=== PATIENT | female | born 1990 | race African-American/Black ===

== ENCOUNTER 2020-10-02 07:09 | Emergency (ER) | payer MEDICARE, MEDICAID, SELFPAY ==
[2020-10-02 07:15] VITALS: BP 140/72; PULSE 80; RESP 16; TEMP 36.6; O2SAT 99
--- NOTE | 2020-10-02 07:28 | ED.GENADULT ---
HPI - General Adult General Chief complaint: Unspecified Stated complaint: insomnia-havent slept in 1 day Time Seen by Provider: 10/02/20 07:28 History of Present Illness HPI narrative: 29 yo female w/ h/o paranoia presents to the ED for insomnia. She reports that she has not been able to sleep well for 1 week. She has not slept at all in the past 24 hours. She believes that this is 2/2 taking Haldol, which she takes PRN for paranoia. She was previously on trazodone. She tried getting in touch with her PCP, but she was not able. Related Data Allergies Allergy/AdvReac Type Severity Reaction Status Date / Time pineapple Allergy Unknown Verified 11/17/18 12:41 SHELLFISH Allergy Intermediate rash, resp Uncoded 11/17/18 12:41 difficulty Review of Systems Constitutional: Constitutional: Reports no additional constitutional complaints and Denies fever(s) Eyes: Eyes: Reports no additional eye complaints ENT: Reports system reviewed and no additional complaints, except as documented Cardiovascular: Cardiovascular: Denies chest pain Respiratory: Respiratory: Denies dyspnea Gastrointestinal: Gastrointestinal: Denies nausea Neurologic: Reports as per HPI Psychiatric: Psychiatric: Reports abnormal sleep pattern, Reports anhedonia, Reports paranoia, Denies homicidal ideation and Denies suicidal ideation [facility] Past Medical History Medical History (Updated 10/02/20 @ 07:38 by Martinez Yee MD) Paranoia Social History Social History (Updated 10/02/20 @ 07:32 by Martinez Yee MD) Smoking status: Never smoker Exam Const: General: cooperative, healthy appearing and no acute distress HENMT: Head: normal to inspection Eyes: General: appearance normal, both eyes and all related structures Pupils: Equal, round and reactive pupils present Neck: Neck: normal visual inspection Resp: Effort & Inspection: normal respiratory effort Skin: General skin exam: normal color Neuro: General: patient oriented x3, gait normal, moves all extremities, no focal motor deficits and CN's II-XI intact bilaterally Speech: normal speech Extrem: General: normal to inspection Medical Decision Making MDM Narrative Medical decision making narrative: I will provide a small amount of trazodone since she has taken this in the past. Discharge Plan Discharge Clinical Impression: Insomnia Patient Disposition: Home, Self-Care Condition: Stable Instructions: Insomnia (ED) Prescriptions: New trazodone 100 mg tablet 100 mg PO HS PRN (Reason: insomnia) Qty: 10 RF: 0 Follow-up/Referrals: Jamil Brown MD [Primary Care Provider] -
== END 2020-10-02 07:55 | disposition home or self-care (01) ==
LOC: ANHED 07:40
PROVIDERS: Emergency Provider Emergency Medicine; PCP Emergency Medicine
DX: G47.00 Insomnia, unspecified (principal)
CPT/HCPCS: 99283

== ENCOUNTER 2021-12-07 09:32 | Emergency (ER) | payer BC, SELFPAY ==
[2021-12-07 09:43] VITALS: BP 115/74; PULSE 98; RESP 20; TEMP 36.2; O2SAT 100
[2021-12-07 10:56] LABS: Basophils Percent Auto 0.2 % (0.2-1.2); Eosinophils Percent Auto 0.5 % (0-4.4); Hematocrit 37.4 % (37.0-47.0); Immature Granulocyte Absolute 0.01 K/mm3 (0.00-0.031); Immature Granulocyte Percent A 0.2 % (0-0.5); Immature Platelet Fraction Pct 3.5 % (0.9-11.2); Lymphocytes Absolute Auto 1.24 K/mm3 (0.9-3.2); Mean Corpuscular HGB Conc 32.1 g/dl (32-36); Mean Corpuscular Hemoglobin 27.1 pg (26-34); Mean Corpuscular Volume 84.4 fl (80-100); Monocytes Absolute Auto 0.5 K/mm3 (0.1-0.6); Neutrophils Absolute Auto 4.7 K/mm3 (1.3-6.7); Neutrophils Percent Auto 72.1 % (45.5-73.1); Platelet Count Result 302 k/mm3 (150-375); Red Blood Count 4.43 M/mm3 (4.2-5.4); Red Cell Distribution Width 14.5 % (11.5-14.5); White Blood Count 6.5 K/mm3 (4.5-10.0)
[2021-12-07 11:06] LABS: Alanine Aminotransferase 12 U/L (6-35); Alkaline Phosphatase 71 U/L (38-126); Anion Gap 7 mmol/L (8-16); Aspartate Amino Transferase 23 U/L (14-36); Bilirubin,Total 0.3 mg/dL (0.2-1.3); Blood Urea Nitrogen 6 mg/dL (7-17); Calcium 8.8 mg/dL (8.4-10.2); Carbon Dioxide 23 mmol/L (22-30); Chloride 106 mmol/L (98-107); Estimated CRCL calculation 126 ml/min; Estimated Glomerular Filt Rate > 60; Glucose 90 mg/dL (65-110); Lipase 104 U/L (23-300); Potassium 3.9 mmol/L (3.4-5.0); Sodium 136 mmol/L (137-145)
[2021-12-07 11:21] VITALS: BP 115/74; PULSE 90; RESP 16; TEMP 36.3; O2SAT 98
[2021-12-07] MEDS: SODIUM CHLORIDE 0.9% IV 1,000 ML 999 ML IV CONT (11:42)
[2021-12-07 12:00] VITALS: BP 120/70; PULSE 90; RESP 16; TEMP 36.3; O2SAT 100
[2021-12-07 12:26] LABS: Appearance Urine Slightly Cloudy (Clear); Bilirubin Urine 2+ (Negative); Blood Urine Negative (Negative); Color Urine Yellow (Yellow); Glucose Urine UA Negative (Negative); Ketones Urine 2+ mg/dL (Negative); Leukocyte Esterase Ur Negative LEU/UL (Negative); Nitrate Urine Negative (Negative); Protein Urine 1+ mg/dL (Negative); Specific Grav Ur >= 1.030 (1.001-1.035)
[2021-12-07 12:40] LABS: Bacteria Urine Trace /hpf; Mucus Urine Heavy /lpf; Squamous Epithelial Cell Urine Many /hpf (Few)
[2021-12-07 12:41] LABS: Add Urine Microscopic? YES
[2021-12-07 13:00] VITALS: BP 122/78; PULSE 86; RESP 16; O2SAT 100
[2021-12-07] MEDS: ONDANSETRON INJ 4 MG/2 ML VIAL IV PUSH (13:20)
--- NOTE | 2021-12-07 13:45 | ED.ABDPAIN ---
HPI - Abdominal Pain General Chief Complaint: Abdominal Pain Stated Complaint: 5 months preg, N/V and abd cramping Time Seen by Provider: 12/07/21 11:31 Source: patient Mode of arrival: ambulatory Limitations: no limitations History of Present Illness HPI narrative: 30-year-old 4 para 2 about 20 weeks of gestation here with complaints of nausea and upper abdominal pain for past few days. Patient states that she has not seen her OB doctor yet with this . She denies any fever or chills. Denies any vaginal bleeding or urinary symptoms. MD elicited complaint: abdominal pain Pertinent past history: none Onset (ago): day(s) (2) Location: epigastric Severity: moderate Quality: aching Radiation: none Migration to: no migration Exacerbating factors: nothing Relieving factors: nothing Associated symptoms: nausea and vomiting Related Data Patient : Yes Allergies Allergy/AdvReac Type Severity Reaction Status Date / Time pineapple Allergy Unknown Verified 11/25/20 12:00 shellfish derived Allergy Unknown Verified 11/25/20 12:00 SHELLFISH Allergy Intermediate rash, resp Uncoded 11/25/20 12:00 difficulty Review of Systems Review of Systems: All systems reviewed & are unremarkable except as noted in HPI and below Eyes: Eyes: Reports no additional eye complaints ENT: Reports system reviewed and no additional complaints, except as documented Cardiovascular: Cardiovascular: Reports no additional cardiovascular complaints Respiratory: Respiratory: Reports no additional respiratory complaints Gastrointestinal: Gastrointestinal: Reports as per HPI Musculoskeletal: Musculoskeletal: Reports no additional musculoskeletal complaints Integumentary/Breasts: Skin/Breast: Reports system reviewed and no additional complaints, except as docu Neurologic: Reports system reviewed and no additional complaints, except as documented Psychiatric: Psychiatric: Reports no additional psychiatric complaints [facility] Past Medical History Medical History Paranoia Family History Family History Mother Family history of mental disorder Depression Hypertension Family history of coronary artery disease Family history of heart disease in male family member before age 55 Family history of malignant neoplasm of breast in first degree relative Patient's mother is Social History Social History Smoking status: Never smoker Second hand tobacco smoke exposure: No Alcohol intake: never Exam Narrative: GENERAL: Well-appearing, well-nourished, and in no acute distress. HEAD: Normocephalic, atraumatic. EYES: PERRLA and EOMI.. NECK: Supple. CHEST: Clear to auscultation. No respiratory distress. HEART: Regular rate and rhythm. No murmur heard. Normal peripheral pulses. ABDOMEN: Gravid abdomen EXTREMITIES: Normal range of motion. No edema. SKIN: Warm, dry, no rash. NEURO: No focal deficits. Alert and oriented x3. PSYCH: Normal mood and affect. Course Course Emergency Course: Did give her a liter of normal saline and 4 of Zofran through her routine labs. She is feeling much better. Informed her about her lab work. Advised to try to drink fluids as tolerated take Zofran as needed, follow-up with her OB as scheduled Vital Signs Vital signs: Vital Signs Temperature 36.2 C L 12/07/21 09:43 Pulse Rate 98 12/07/21 09:43 Respiratory Rate 20 12/07/21 09:43 Blood Pressure 115/74 12/07/21 09:43 Pulse Oximetry 100 12/07/21 09:43 Temperature 36.3 C L 12/07/21 11:21 Pulse Rate 90 12/07/21 11:21 Respiratory Rate 16 12/07/21 11:21 Blood Pressure 115/74 12/07/21 11:21 Pulse Oximetry 98 12/07/21 11:21 MDM - Abdominal Pain Lab Data Result diagrams: 12/07/21 10:46 12/07/21 10:46 L
--- NOTE | 2021-12-07 14:00 | PC.NURSE ---
TO ED for FHT's Pt is 18 weeks gestation with vomiting over weekend. Pt states this is her 4th . FHT noted to be in 150; Pt states she is feeling contractions however points of epigastric area as area contractions. Abdomen palpates soft. Appplied toco and not contractions noted.
[2021-12-07 14:11] VITALS: BP 120/74; PULSE 84; RESP 16; O2SAT 100
--- NOTE | 2021-12-07 14:21 | PC.NURSE ---
Pt states she would like to see a female MD at [place]. Pt given [place] [facility] directory, Reviewed female MD's and midwives.
== END 2021-12-07 14:13 | disposition home or self-care (01) ==
PROVIDERS: Family Medicine; Emergency Provider Emergency Medicine; PCP Emergency Medicine
DX: O26.892 Other specified pregnancy related conditions, second trimester (principal); R10.13 Epigastric pain; O21.9 Vomiting of pregnancy, unspecified; Z3A.20 20 weeks gestation of pregnancy
CPT/HCPCS: 36415; 80053; 81001; 83690; 85025; 85055; 96361; 96374; 99284; J2405; J7030

== ENCOUNTER 2021-12-13 21:53 | Emergency (ER) | payer BC, SELFPAY ==
[2021-12-13] VITALS (10 sets, daily range): BP systolic 102–130; BP diastolic 71–85; PULSE 74–98; RESP 17–18; TEMP 36.1; O2SAT 100
[2021-12-13] MEDS: SODIUM CHLORIDE 0.9% IV 1,000 ML 999 ML IV CONT (22:23)
[2021-12-13] MEDS: diphenhydrAMINE HCl INJ 50 MG/ML VIAL 25 MG IV PUSH (22:23)
[2021-12-13] MEDS: METOCLOPRAMIDE HCL INJ 10 MG/2 ML VIAL IV PUSH (22:23)
[2021-12-14] VITALS (10 sets, daily range): BP systolic 91–114; BP diastolic 57–79; PULSE 82–95; RESP 17; O2SAT 100
[2021-12-14 00:10] LABS: Appearance Urine Clear (Clear); Bilirubin Urine 1+ (Negative); Blood Urine Trace-lysed (Negative); Color Urine Yellow (Yellow); Glucose Urine UA Negative (Negative); Ketones Urine 4+ mg/dL (Negative); Leukocyte Esterase Ur Trace LEU/UL (Negative); Nitrate Urine Negative (Negative); Protein Urine 1+ mg/dL (Negative); Specific Grav Ur >= 1.030 (1.001-1.035)
--- NOTE | 2021-12-14 00:16 | ED.NAVMDI ---
HPI - Nausea/Vomiting/Diarrhea General Chief complaint: Nausea/Vomiting/Diarrhea Stated complaint: hyperemesis Time Seen by Provider: 12/13/21 22:08 History of Present Illness HPI Narrative: 30-year-old female at 19 weeks presents with nausea and vomiting, unable to keep anything down, this is an ongoing problem through her entire . She also will have some epigastric discomfort when she eats. No fevers or chills, no flank pain, no dysuria. Related Data Allergies Allergy/AdvReac Type Severity Reaction Status Date / Time pineapple Allergy Unknown Other Verified 12/13/21 22:21 shellfish derived Allergy Unknown Swelling Verified 12/13/21 22:21 of Lip/Tongue/Throat SHELLFISH Allergy Intermediate rash, resp Uncoded 11/25/20 12:00 difficulty Review of Systems Review of Systems: CONST: No fever. HEENT: No sore throat C/V: No chest pain RESP: No cough GI: Reports abdominal pain, nausea, vomiting : No dysuria. M/S: No joint pain. SKIN: No rash. NEURO: [No focal numbness or weakness] PSYCH: [No depression] [facility] Past Medical History Medical History Paranoia Family History Family History Mother Family history of mental disorder Depression Hypertension Family history of coronary artery disease Family history of heart disease in male family member before age 55 Family history of malignant neoplasm of breast in first degree relative Patient's mother is Social History Social History Smoking status: Never smoker Second hand tobacco smoke exposure: No Alcohol intake: never Exam Narrative: EXAMINATION OF ORGAN SYSTEMS/BODY AREAS: Constitutional: Vital signs per nursing GENERAL:Appears uncomfortable in bed HEAD: Normal with no signs of head trauma. EYES: EOMI, conjunctiva normal ENT: Hearing grossly intact LUNGS: Nonlabored breathing. HEART: [Regular rate and rhythm] ABD: [Soft], [nontender to palpation], gravid EXT: Normal range of motion SKIN: [No rashes or lesions.] NEURO: [Alert and oriented x 3. No gross focal sensory or strength deficits.] PSYCH: Normal affect Course Course Emergency Course: 30-year-old female presenting with nausea and vomiting during , vital signs stable, exam shows uncomfortable patient but soft, nontender abdomen, I suspect hyperemesis versus gastritis versus unlikely any acute intra-abdominal etiology without tenderness, she is treated here with IV fluids and Reglan, on reevaluation she is feeling much better, urinalysis does not show any UTI, but does show ketones signifying dehydration, she is given additional fluids and will be discharged with famotidine and she already has Zofran. She should follow-up with her OB and come back if worse. Vital Signs Vital signs: Vital Signs Temperature 97.0 F L 12/13/21 21:55 Pulse Rate 98 12/13/21 21:55 Respiratory Rate 18 12/13/21 21:55 Blood Pressure 130/85 12/13/21 21:55 Pulse Oximetry 100 12/13/21 21:55 Temperature 97.0 F L 12/13/21 21:55 Pulse Rate 74 12/13/21 23:00 Respiratory Rate 17 12/13/21 23:00 Blood Pressure 102/71 12/13/21 22:45 Pulse Oximetry 100 12/13/21 23:00 MDM - Nausea/Vomiting/Diarrhea Lab Data Labs: Lab Results 12/13/21 Range/Units 23:56 Urine Color Yellow (Yellow) Urine Appearance Clear (Clear) Urine pH 6.0 (5.0-9.0) Ur Specific [place] >= 1.030 (1.001-1.035) Urine Protein 1+ H (Negative) mg/dL Urine Glucose (UA) Negative (Negative) mg/dL Urine Ketones 4+ H (Negative) mg/dL Ur Blood (Man) Trace-lysed (Negative) Urine Nitrate Negative (Negative) Urine Bilirubin 1+ H (Negative) Urine Urobilinogen 1.0 (<2.0) mg/dL Leukocyte Esterase Rfl Trace H (Negative) TIMOTHY/UL Urine RBC 6-10 H (0-2) /hpf Urine WBC 4-6 H /hpf U
[2021-12-14 00:17] LABS: Bacteria Urine Trace /hpf; Mucus Urine Heavy /lpf; Squamous Epithelial Cell Urine Many /hpf (Few)
[2021-12-14 00:18] LABS: Add Urine Microscopic? YES
[2021-12-14] MEDS: DEXTROSE 5%/LACTATED RINGERS 1,000 ML 999 ML IV CONT (00:39)
[2021-12-14] MEDS: FAMOTIDINE 20 MG/2 ML VIAL IV PUSH (00:39)
== END 2021-12-14 02:29 | disposition home or self-care (01) ==
PROVIDERS: Emergency Provider Emergency Medicine; PCP Emergency Medicine
DX: O21.0 Mild hyperemesis gravidarum (principal); Z3A.19 19 weeks gestation of pregnancy
CPT/HCPCS: 81001; 96361; 96374; 96375; 99284; J1200; J2765; J7030; J7121

== ENCOUNTER 2022-03-28 16:07 | Observation (INO) | payer OTHER, SELFPAY ==
[2022-03-28] VITALS (13 sets, daily range): BP systolic 105–128; BP diastolic 73–95; PULSE 75–105; BMI 25.3
[2022-03-28 16:57] LABS: Basophils Percent Auto 0.3 % (0.2-1.2); Hematocrit 32.8 % (37.0-47.0); Hemoglobin 10.7 g/dL (12.0-15.0); Immature Granulocyte Absolute 0.03 K/mm3 (0.00-0.031); Immature Granulocyte Percent A 0.3 % (0-0.5); Lymphocytes Absolute Auto 1.28 K/mm3 (0.9-3.2); Lymphocytes Percent Auto 13.2 % (18.3-44.2); Mean Corpuscular HGB Conc 32.6 g/dl (32-36); Mean Corpuscular Hemoglobin 26.5 pg (26-34); Mean Corpuscular Volume 81.2 fl (80-100); Mean Platelet Volume 10.4 fl (7.4-10.4); Monocytes Absolute Auto 0.8 K/mm3 (0.1-0.6); Monocytes Percent Auto 8.7 % (2.6-8.5); Neutrophils Absolute Auto 7.5 K/mm3 (1.3-6.7); Neutrophils Percent Auto 77.5 % (45.5-73.1); Platelet Count Result 289 k/mm3 (150-375); Red Blood Count 4.04 M/mm3 (4.2-5.4); Red Cell Distribution Width 13.1 % (11.5-14.5); White Blood Count 9.7 K/mm3 (4.5-10.0)
[2022-03-28] MEDS: DEXTROSE 5%/LACTATED RINGERS 1,000 ML 999 ML IV CONT (16:59)
[2022-03-28] MEDS: ONDANSETRON INJ 4 MG/2 ML VIAL IV PUSH (17:00)
[2022-03-28] MEDS: PANTOPRAZOLE SODIUM IV 40 MG VIAL IV PUSH (17:01)
--- NOTE | 2022-03-28 17:03 | OBADM ---
This patient, Odette A Kenia Cornejo, admitted to the OB room OB Post 116 for observation. Patient/family oriented to hospital policies and general routines including ID bracelet, bed and alarms, visiting hours, pain management, procedures, bathroom and other care routines, personal items, smoking policy, room service/diet, and visiting hours. Patient/Family are encouraged to report perceived risks to care and to ask questions if they do not understand what they are told or what they should do.
[2022-03-28 17:08] LABS: Alanine Aminotransferase 12 U/L (6-35); Albumin Level 3.5 g/dL (3.5-5.1); Alkaline Phosphatase 199 U/L (38-126); Anion Gap 9 mmol/L (8-16); Aspartate Amino Transferase 21 U/L (14-36); Bilirubin,Total 0.3 mg/dL (0.2-1.3); Blood Urea Nitrogen 7 mg/dL (7-17); Calcium 8.8 mg/dL (8.4-10.2); Carbon Dioxide 19 mmol/L (22-30); Chloride 104 mmol/L (98-107); Estimated Glomerular Filt Rate > 60; Glucose 92 mg/dL (65-110); Potassium 3.8 mmol/L (3.4-5.0); Sodium 132 mmol/L (137-145)
--- NOTE | 2022-03-28 18:56 | PM.IMHP ---
H&P: [facility] History of Present Illness Date/Time: 03/28/22 18:56 Chief Complaint: Nausea vomiting Narrative: this patient is a 31-year-old multiparous female at 33 week gestation who presents for nausea vomiting. She has had hyperemesis throughout her . She had some episodes of vomiting. She has improved since she has been observed here in the hospital. She denies any vaginal bleeding. She denies any loss of fluid or contractions. She denies any chest pain or shortness of breath. She denies any nausea, vomiting, fever, chills. Review of Systems Review of Systems: All systems reviewed & are unremarkable except as noted in HPI and below Constitutional: Constitutional: Denies chills, Denies fatigue, Denies fever(s) and Denies weakness Eyes: Eyes: Denies blurry vision, Denies change in vision, Denies loss of peripheral vision, Denies loss of vision, Denies other visual disturbances and Denies eye pain ENT: Denies vertigo, Denies dizziness, Denies hearing loss, Denies mouth pain, Denies nasal obstruction, Denies neck mass and Denies neck pain Cardiovascular: Cardiovascular: Denies chest pain, Denies diaphoresis, Denies syncope, Denies leg edema and Denies dyspnea Respiratory: Respiratory: Denies chest congestion, Denies cough, Denies hemoptysis, Denies dyspnea and Denies wheezing Gastrointestinal: Gastrointestinal: Denies abdominal pain, Denies constipation, Denies diarrhea, Denies nausea and Denies vomiting Genitourinary: Genitourinary: Denies hematuria, Denies change in libido, Denies nocturia, Denies genital lesions, Denies flank pain and Denies urinary urgency Musculoskeletal: Musculoskeletal: Denies abnormal gait, Denies back pain, Denies myalgias, Denies arthralgias, Denies joint swelling, Denies muscle weakness and Denies neck pain Integumentary/Breasts: Skin/Breast: Denies swelling, Denies breast pain, Denies breast mass, Denies dry skin, Denies nipple discharge, Denies unusual bruising and Denies jaundice Neurologic: Denies Neuro-related abnormal movements, Denies Abnormal speech present, Denies abnormal gait, Denies behavioral changes, Denies confusion, Denies vertigo, Denies dizziness, Denies syncope, Denies loss of vision, Denies memory loss, Denies convulsions and Denies weakness Psychiatric: Psychiatric: Denies abnormal sleep pattern, Denies behavioral changes, Denies change in libido, Denies confusion, Denies depression, Denies anhedonia and Denies memory loss Endocrine: Endocrine: Reports no additional endocrine complaints, Denies change in libido and Denies fatigue Hematologic/Lymphatic: Hematologic/Lymphatic: Reports no additional hematologic/lymphatic complaints Allergic/Immunologic: Allergic/Immunologic: Reports no additional allergic/immunologic complaints and Denies wheezing PMFSH Past Medical History Medical History Paranoia Family History Family History Mother Family history of mental disorder Depression Hypertension Family history of coronary artery disease Family history of heart disease in male family member before age 55 Family history of malignant neoplasm of breast in first degree relative Patient's mother is Social History Social History Smoking status: Never smoker Second hand tobacco smoke exposure: No Alcohol intake: never Meds Home Medications and Allergies Home Medications Medication Instructions Recorded Confirmed Type ondansetron 4 mg disintegrating 4 mg PO Q6-8H PRN nausea and 12/07/21 03/28/22 Rx tablet vomiting #14 tabs famotidine 20 mg tablet (Pepcid) 20 mg PO DAILY #30 tabs 12/14/21 03/28/22 Rx Allergies Allergy/AdvReac Type Severity Reaction Status Date / Time pineapple Allergy Unknown Other Verified 12/13/21 22:21 shellfish derived Allergy Unknown Swelling Verified 12/13/21
--- NOTE | 2022-03-28 19:05 | PC.NURSE ---
Dr. Carmichael at bedside. Dr. Carmichael discussed plan of care with patient. Patient states understanding of plan of care and denies questions.
== END 2022-03-28 20:13 | disposition home or self-care (01) ==
PROVIDERS: Obstetrics & Gynecology; Admitting Provider Obstetrics & Gynecology; PCP Emergency Medicine; Visit Provider Obstetrics & Gynecology
DX: O21.9 Vomiting of pregnancy, unspecified (principal); Z3A.33 33 weeks gestation of pregnancy; Z79.899 Other long term (current) drug therapy
CPT/HCPCS: 36415; 80053; 85025; 96374; 96375; C9113; G0378; G0379; J2405; J7121

== ENCOUNTER 2022-04-20 22:13 | Outpatient (CLI) | payer OTHER, SELFPAY ==
[2022-04-20 23:02] VITALS: BP 114/71; PULSE 78
[2022-04-20 23:12] LABS: Basophils Percent Auto 0.3 % (0.2-1.2); Eosinophils Percent Auto 0.4 % (0-4.4); Hematocrit 28.5 % (37.0-47.0); Hemoglobin 8.9 g/dL (12.0-15.0); Immature Granulocyte Absolute 0.03 K/mm3 (0.00-0.031); Immature Granulocyte Percent A 0.4 % (0-0.5); Lymphocytes Absolute Auto 1.68 K/mm3 (0.9-3.2); Lymphocytes Percent Auto 22.3 % (18.3-44.2); Mean Corpuscular HGB Conc 31.2 g/dl (32-36); Mean Corpuscular Hemoglobin 25.4 pg (26-34); Mean Corpuscular Volume 81.4 fl (80-100); Mean Platelet Volume 10.5 fl (7.4-10.4); Monocytes Absolute Auto 0.8 K/mm3 (0.1-0.6); Monocytes Percent Auto 10.4 % (2.6-8.5); Neutrophils Percent Auto 66.2 % (45.5-73.1); Platelet Count Result 246 k/mm3 (150-375); Red Cell Distribution Width 13.8 % (11.5-14.5); White Blood Count 7.5 K/mm3 (4.5-10.0)
[2022-04-20 23:15] VITALS: BP 109/63; PULSE 94
[2022-04-20 23:21] LABS: Alanine Aminotransferase 14 U/L (6-35); Albumin Level 3.1 g/dL (3.5-5.1); Alkaline Phosphatase 215 U/L (38-126); Anion Gap 11 mmol/L (8-16); Aspartate Amino Transferase 22 U/L (14-36); Bilirubin,Total 0.2 mg/dL (0.2-1.3); Blood Urea Nitrogen 6 mg/dL (7-17); Calcium 8.2 mg/dL (8.4-10.2); Carbon Dioxide 19 mmol/L (22-30); Chloride 104 mmol/L (98-107); Estimated Glomerular Filt Rate > 60; Glucose 105 mg/dL (65-110); Potassium 3.4 mmol/L (3.4-5.0); Sodium 134 mmol/L (137-145)
[2022-04-20 23:30] VITALS: BP 89/46; PULSE 69
[2022-04-20 23:45] VITALS: BP 98/65; PULSE 65
[2022-04-21] VITALS: BP 98/68; PULSE 69
[2022-04-21 00:25] LABS: Add Urine Microscopic? YES; Appearance Urine Slightly Cloudy (Clear); Bilirubin Urine 1+ (Negative); Blood Urine Negative (Negative); Color Urine Brown (Yellow); Glucose Urine UA Negative (Negative); Ketones Urine 1+ mg/dL (Negative); Leukocyte Esterase Ur 1+ LEU/UL (NEGATIVE); Nitrate Urine Negative (Negative); Protein Urine 1+ mg/dL (Negative); Specific Grav Ur >= 1.030 (1.001-1.035)
[2022-04-21 00:34] LABS: Bacteria Urine 1+ /hpf; Calcium Oxalate Crystals Urine Present /hpf; Mucus Urine Moderate /lpf; Squamous Epithelial Cell Urine Many /hpf (Few); WBC Urine 31-50 /hpf (0-3)
[2022-04-21 00:52] LABS: Creatinine Urine 300.2 mg/dL; Total Protein Urine Random 6 mg/dL; Ur Ttl Prot Creatinine Ratio 0.02 mg/mg (0-0.20)
== END 2022-04-21 01:30 | disposition home or self-care (01) ==
LOC: ANHOBOP 22:21 → ANHOBPP 22:21
PROVIDERS: Obstetrics & Gynecology; PCP Nurse Practitioner Pediatrics; Visit Provider Obstetrics & Gynecology
DX: R60.0 Localized edema (principal); Z51.81 Encounter for therapeutic drug level monitoring; Z79.899 Other long term (current) drug therapy
CPT/HCPCS: 36415; 59025; 80053; 81001; 82570; 84156; 84550; 85025; 87086; 87088; 99199

== ENCOUNTER 2022-04-25 23:32 | Observation (INO) | payer OTHER, SELFPAY ==
[2022-04-26 00:35] VITALS: BP 96/71; PULSE 79
--- NOTE | 2022-04-26 01:40 | OBADM ---
This patient, Odette A Kenia Cornejo, admitted to the OB room Labor/Delivery/Recovery 104 for observation. Patient/family oriented to hospital policies and general routines including ID bracelet, bed and alarms, visiting hours, pain management, procedures, bathroom and other care routines, personal items, smoking policy, room service/diet, and visiting hours. Patient/Family are encouraged to report perceived risks to care and to ask questions if they do not understand what they are told or what they should do.
--- NOTE | 2022-04-28 07:31 | PM.OBTRLD ---
OB - Triage/Final Diagnosis Visit Information Comments/Additional reasons for admission: I have assessed the risk for this patient, Odette Aquino Mba, and determined that she would benefit from observation care. Final Diagnosis (1) Nausea/vomiting in : Code(s): O21.9 - Vomiting of , unspecified Status: Acute
== END 2022-04-26 01:47 | disposition home or self-care (01) ==
PROVIDERS: Admitting Provider Obstetrics & Gynecology; PCP Nurse Practitioner Pediatrics; Visit Provider Obstetrics & Gynecology
DX: O21.9 Vomiting of pregnancy, unspecified (principal); Z3A.00 Weeks of gestation of pregnancy not specified
CPT/HCPCS: 84112; G0378; G0379

== ENCOUNTER 2022-05-07 05:19 | Inpatient (IN) | payer OTHER, SELFPAY ==
[2022-05-07] VITALS (19 sets, daily range): BP systolic 107–148; BP diastolic 59–97; PULSE 61–100; RESP 16–18; TEMP 36–36.8; O2SAT 99–100; BMI 27.5
--- OUTSIDE RECORDS SUMMARY | 2022-05-07 05:23 | XMS_ITS ---
:1990 Author Care Team Providers Name Role Phone JudiSeveriano cruz Primary Care Provider Unavailable Allergies None recorded. Medications Name Status Start Date Stop Date ? ? Abilify Maintena 400 mg intramuscular suspension,extended Active ? Not available release aripiprazole 20 mg tablet Active ? Not av ailable halobetasol propionate 0.05 % topical cream Active ? Not available halobetasol propionate 0.05 % topical ointment Active ? Not available risperidone 2 mg tablet Active ? Not avai lable terbinafine HCl 250 mg tablet Active ? No t available triamcinolone acetonide 0.1 % topical cream Active ? Not available Notes: Vitamin D 800 units daily Problems Name Status Onset Date Source ? Unknown 08/17/2017 ? Procedures None recorded. Results Lab Results Date Name Specimen Result Interpretation Description Value Range Status Address ? 10/14/2017 [place] ? Score 4 ? ? In- Office Order: Interna l Use Depression Only D O Not Scale* Attach Compendium DO Not Attach Compendium , Do Not Delete /merge 08/16/2017 Urinalysis, ? Leukocytes Small ? ? In-Office Order: Dipstick Internal Use Only DO No t Attach Compendium DO
[2022-05-07 06:06] LABS: Basophils Percent Auto 0.4 % (0.2-1.2); Eosinophils Percent Auto 0.4 % (0-4.4); Hematocrit 30.6 % (37.0-47.0); Hemoglobin 9.5 g/dL (12.0-15.0); Immature Granulocyte Absolute 0.03 K/mm3 (0.00-0.031); Immature Granulocyte Percent A 0.4 % (0-0.5); Lymphocytes Absolute Auto 1.65 K/mm3 (0.9-3.2); Lymphocytes Percent Auto 24.5 % (18.3-44.2); Mean Corpuscular Hemoglobin 25.5 pg (26-34); Mean Corpuscular Volume 82.3 fl (80-100); Mean Platelet Volume 10.6 fl (7.4-10.4); Monocytes Absolute Auto 0.7 K/mm3 (0.1-0.6); Monocytes Percent Auto 10.3 % (2.6-8.5); Neutrophils Absolute Auto 4.3 K/mm3 (1.3-6.7); Platelet Count Result 266 k/mm3 (150-375); Red Blood Count 3.72 M/mm3 (4.2-5.4); Red Cell Distribution Width 16.5 % (11.5-14.5); White Blood Count 6.7 K/mm3 (4.5-10.0)
[2022-05-07] MEDS: LACTATED RINGERS 1,000 ML 125 ML IV CONT (06:14)
[2022-05-07] MEDS: OXYTOCIN 30 UNITS/NS 500 ML 30 UNITS/500 ML BAG IV CONT (06:15)
--- NOTE | 2022-05-07 06:22 | LDADM ---
This patient, Odette A Kenia Cornejo, was admitted to Labor/Delivery/Recovery 105 on 05/07/22 at 05:19. Plans for labor, pain management and were discussed with patient. Patient/family oriented to hospital policies and general routines including ID bracelet, bed and alarms, visiting hours, pain management, procedures, bathroom and other care routines, personal items, smoking policy, room service/diet and guest tray routines, security routines, and visiting hours. Patient/Family are encouraged to report perceived risks to care and to ask questions if they do not understand what they are told or what they should do. See OBIX for further documentation.
--- NOTE | 2022-05-07 07:27 | PM.IMHP ---
H&P: HPI History of Present Illness Date/Time: 05/07/22 07:27 Chief Complaint: induction of labor Narrative: Odette is a 31yo at 39.0 for elective IOL. complicated by late care at 23w, insufficient care, hyperemesis, anemia, history of labor, and history of daughter with Trisomy 13 who at 4mo. She is GBS neg. Review of Systems Review of Systems: All systems reviewed & are unremarkable except as noted in HPI and below PMFSH Past Medical History Medical History Paranoia Family History Family History (Updated 04/26/22 @ 14:56 by Jose Mills RN) Mother Hypertension Congestive heart failure Grandparent Palpitations Grandparent Family member Social History Social History Smoking status: Never smoker Second hand tobacco smoke exposure: No Alcohol intake: never Substance use: never Spiritual care concerns: No Meds Home Medications and Allergies Home Medications Medication Instructions Recorded Confirmed Type ondansetron 4 mg disintegrating 4 mg PO Q6-8H PRN nausea and 12/07/21 05/07/22 Rx tablet vomiting #14 tabs famotidine 20 mg tablet (Pepcid) 20 mg PO DAILY #30 tabs 12/14/21 05/07/22 Rx Allergies Allergy/AdvReac Type Severity Reaction Status Date / Time pineapple Allergy Unknown Rash Verified 05/07/22 06:17 shellfish derived Allergy Unknown Swelling Verified 05/07/22 06:17 of Lip/Tongue/Throat SHELLFISH Allergy Intermediate rash, resp Uncoded 05/07/22 06:17 difficulty Vital Signs Vital Signs - 24 hr 05/07/22 05:38 05/07/22 06:34 05/07/22 06:48 Temperature 98.1 F Pulse Rate 86 71 Blood Pressure 122/89 123/91 H Oxygen Delivery 05/07/22 06:08 05/07/22 06:21 Temperature Pulse Rate Blood Pressure Oxygen Delivery Room Air Room Air Exam Const: General: no acute distress Resp: Effort & Inspection: normal respiratory effort Auscultation: clear to auscultation bilaterally Cardio: Rate: regular rate Rhythm: regular rhythm GI: GI Palp: Yes Soft to palpation Extrem: General: normal to inspection H&P: Results Labs Labs: Short CBC 05/07/22 Range/Units 05:53 WBC 6.7 (4.5-10.0) K/mm3 Hgb 9.5 L (12.0-15.0) g/dL Hct 30.6 L (37.0-47.0) % Plt Count 266 (150-375) k/mm3 Assessment and Plan Assessment and plan (1) Term : Code(s): Z34.90 - Encounter for supervision of normal , unspecified, unspecified trimester Status: Acute (2) Nausea/vomiting in : Code(s): O21.9 - Vomiting of , unspecified Status: Acute (3) Insufficient care: Code(s): O09.30 - Supervision of with insufficient care, unspecified trimester Status: Acute (4) Anemia affecting : Code(s): O99.019 - Anemia complicating , unspecified trimester Status: Acute Plan GBS neg pitocin per protocol FHT category 1 AROM clear SVE /-2 anticipate , planning NCB.
--- NOTE | 2022-05-07 09:50 | PM.OBPRVD ---
OB - Delivery Note Procedure Delivery date: 05/07/22 Procedure: , precipitous Events: Elective Induction of Labor Induction method: AROM and Per Pitocin Protocol Delivery monitor: External FHT and External Uterine Route of delivery: Laceration Description: None Quantitative Blood Loss (ml): 140 Anesthesia type: None Disposition: Floor Narrative: I arrived a minute following precipitous delivery of after immediate change from 7cm to complete. RN delivered baby JOCELIN. The baby's anterior shoulder was delivered under the pubic symphysis without difficulty. The posterior shoulder and the rest of the baby delivered without difficulty. The cord was clamped and cut after 30 seconds. I delivered the placenta and inspected the perinieum. NO lacerations. Mother and baby both stable. Baby Date of : 05/07/22 Time of : 09:37 Weeks of gestation at delivery: 39 gender: Male Weight (pounds): 7 Weight (ounces): 9 presentation: vertex position: Left Occiput Anterior Placenta delivery description: Spontaneous Cord Vessel Description: 3 Vessels, Nuchal Cord and Delayed Cord Clamping score one minute: 9 score five minutes: 9
[2022-05-07] MEDS: OXYTOCIN 30 UNITS/NS 500 ML 30 UNITS/500 ML BAG 125 UNITS IV CONT (10:11)
[2022-05-07] MEDS: ONDANSETRON INJ 4 MG/2 ML VIAL IV PUSH ×3 (10:24→21:09)
[2022-05-07] MEDS: IBUPROFEN 600 MG TABLET PO ×2 (10:27→22:17)
[2022-05-07] MEDS: BENZOCAINE 20% AER SPR (*SP) 56 GM CAN 1 SPRAY TOPICAL (11:32)
[2022-05-07] MEDS: WITCH HAZEL 40 PADS 1 PAD TOPICAL (11:32)
[2022-05-07] MEDS: ACETAMINOPHEN 325 MG TABLET 650 MG PO ×2 (12:05→22:18)
--- NOTE | 2022-05-07 14:01 | OBPPTRN ---
1307-Patient transferred to post room #284 via wheelchair. Support person present. Oriented to unit, room, information board, rooming in, admission packet and security measures. Patient verbalizes understanding.
[2022-05-07 17:12] LABS: Rapid Plasma Reagin Non-Reactive (NonReactive)
[2022-05-07] MEDS: POLYSACCHARIDE IRON COMPLEX 150 MG CAPSULE PO (17:58)
[2022-05-07] MEDS: DOCUSATE SODIUM 100 MG CAPSULE PO (17:59)
[2022-05-08] VITALS: BP 117/78; PULSE 79; RESP 18; TEMP 36.6; O2SAT 100
[2022-05-08 04:00] VITALS: BP 98/71; PULSE 62; RESP 16; TEMP 36.6; O2SAT 100
[2022-05-08] MEDS: ACETAMINOPHEN 325 MG TABLET 650 MG PO ×3 (04:39→19:44)
[2022-05-08] MEDS: IBUPROFEN 600 MG TABLET PO ×3 (04:39→19:44)
[2022-05-08 04:48] LABS: Hematocrit 29.2 % (37.0-47.0); Hemoglobin 9.3 g/dL (12.0-15.0)
[2022-05-08 08:00] VITALS: BP 101/71; PULSE 70; RESP 16; TEMP 36.8; O2SAT 100
--- NOTE | 2022-05-08 08:17 | PM.OBPNVD ---
OB - PN: Subj Subjective Date/time seen: 05/08/22 08:17 Patient comments: no complaints, pain well controlled, tolerating diet and flatus present OB - PN: Obj Data Labs CBC & Chem 7: 05/08/22 04:35 Labs: Laboratory Results - last 24 hr 05/07/22 05/08/22 05:53 04:35 Hgb 9.3 L Hct 29.2 L RPR Non-reactive OB - PN A/P Plan day: 1 Comments: Post Op LTCS - no problems, routine recovery Time Spent With Patient Time: Total time spent is greater than 50% in coordination of care (as documented) at patient's floor/unit and/or counseling patient: Exam Const: General: cooperative, healthy appearing, comfortable and no acute distress Resp: Auscultation: no crackles, no rales, no rhonchi and no wheezes Cardio: Rhythm: regular rhythm Heart sounds: no click and no murmurs GI: Inspection: non-distended Auscultation: normal bowel sounds Extrem: General: normal to inspection, no pedal edema and no calf tenderness
[2022-05-08] MEDS: MULTIVIT/MIN/PREN/FOL AC/IRON TABLET 1 TAB PO (09:30)
[2022-05-08] MEDS: POLYSACCHARIDE IRON COMPLEX 150 MG CAPSULE PO ×2 (09:30→16:42)
[2022-05-08] MEDS: DOCUSATE SODIUM 100 MG CAPSULE PO ×2 (09:30→16:42)
[2022-05-08 19:40] VITALS: BP 107/73; PULSE 85; RESP 18; TEMP 36.6; O2SAT 100
[2022-05-09 07:30] VITALS: BP 125/82; PULSE 66; RESP 16; TEMP 36.7; O2SAT 100
[2022-05-09] MEDS: DOCUSATE SODIUM 100 MG CAPSULE PO (08:52)
[2022-05-09] MEDS: POLYSACCHARIDE IRON COMPLEX 150 MG CAPSULE PO (08:53)
[2022-05-09] MEDS: MULTIVIT/MIN/PREN/FOL AC/IRON TABLET 1 TAB PO (08:53)
--- NOTE | 2022-05-09 11:02 | PM.OBPNVD ---
OB - PN: Subj Subjective Date/time seen: 05/09/22 11:02 Patient comments: no complaints, pain well controlled and tolerating diet OB - PN: Obj Data Labs CBC & Chem 7: 05/08/22 04:35 OB - PN A/P Plan day: 2 Plan: routine care and discharge home Time Spent With Patient Time: Total time spent is greater than 50% in coordination of care (as documented) at patient's floor/unit and/or counseling patient: Exam Const: General: comfortable and no acute distress Resp: Effort & Inspection: normal respiratory effort Auscultation: no rales, no rhonchi and no wheezes Cardio: Rate: regular rate Heart sounds: no click, no murmurs and no rubs GI: GI Palp: Yes Soft to palpation and No Tenderness to palpation present (GI) Auscultation: normal bowel sounds Extrem: General: normal to inspection, no pedal edema and no calf tenderness
--- NOTE | 2022-05-09 11:03 | PM.OBDSVD ---
DS: Admitting Diagnosis Discharge Date 05/09/22 Admitting Diagnosis term OB - DS: Summary OB Procedures : None OB Procedures Intrapartum: Spontaneous Vag Delivery OB Procedures: : None Time Spent with Patient Time attestation: Total time spent providing and/or coordinating discharge services: Discharge Plan Discharge Discharging Clinician: Sowmya Carmichael Patient Disposition: Home, Self-Care Activity: pelvic rest Diet: regular Patient Instructions: Antibiotic Form Stand Alone Forms: General Discharge Information Follow-up/Referrals: Sowmya Carmichael MD [Physician] - Discharge Medications: Continued ondansetron 4 mg tablet,disintegrating 4 mg PO Q6-8H PRN (Reason: nausea and vomiting) Qty: 14 0RF famotidine [Pepcid] 20 mg tablet 20 mg PO DAILY Qty: 30 0RF Date of admission: 05/07/22 05:19 Primary Care Provider: Areli,Salma Admitting Provider: Ángela Parrish Attending physician on admission: Ángela Parrish Condition: Stable
[2022-05-09] MEDS: ACETAMINOPHEN 325 MG TABLET 650 MG PO (11:15)
[2022-05-09] MEDS: IBUPROFEN 600 MG TABLET PO (11:15)
[2022-05-10 08:38] VITALS: BP 123/82; PULSE 73; RESP 20; TEMP 36.8; O2SAT 100
== END 2022-05-09 14:40 | disposition home or self-care (01) | DRG 807 ==
LOC: ANHOB2 05-09 11:09 → ANHLDR 05-10 12:04 → ANHOB2 05-10 12:04
PROVIDERS: Admitting Provider Obstetrics & Gynecology; PCP Nurse Practitioner Pediatrics; Visit Provider Obstetrics & Gynecology
DX: O62.3 Precipitate labor (principal); Z37.0 Single live birth; Z3A.39 39 weeks gestation of pregnancy
CPT/HCPCS: 36415; 85014; 85018; 85025; 86592; 86850; 86900; 86901; A9270; J2405; J2590; J7120

== ENCOUNTER 2022-05-12 11:00 | Emergency (ER) | payer OTHER, SELFPAY ==
--- NOTE | ~2022-05-12 | CT_ITS ---
EXAMINATION: CT brain wo con DATE: 05/12/2022 12:23 INDICATION: Headache. TECHNIQUE: Computed tomography (CT) of the head was performed without intravenous contrast. The mA wa s adjusted according to patient size. Iterative reconstruction technique was employed. The dose-lengt h product was 605.33 mGy-cm. COMPARISON: None FINDINGS: There is no intracranial hemorrhage, acute infarction, or abnormal intracranial mass lesion . The ventricles are normal in size. The orbits are normal. There is mild mucosal thickening in the p aranasal sinuses. The mastoid air cells are normal. IMPRESSION: 1. Normal brain. Reviewed, dictated and finalized at location A. IMPRESSION: 1. Normal brain.
[2022-05-12 11:04] VITALS: BP 135/91; PULSE 104; RESP 18; TEMP 36.9; O2SAT 98
--- NOTE | 2022-05-12 12:04 | ED.HA ---
HPI - Headache General Chief Complaint: Headache Stated Complaint: headache, Time Seen by Provider: 05/12/22 11:53 Source: patient Mode of arrival: ambulatory Limitations: no limitations History of Present Illness HPI Narrative: Patient presents complaints of frontal headache with photophobia that started yesterday. States has not been sleeping well due to new baby in the home. Patient is 5 days vaginal delivery. States has a history of severe headaches with insomnia and that this is similar to previous episodes. Denies nausea, vomiting or other symptoms at this time. Has taken Tylenol 500 mg for symptoms with no relief. Related Data Home Medications Medication Instructions Recorded Confirmed ferrous sulfate 325 mg (65 mg 325 mg PO DAILY 05/12/22 05/12/22 iron) tablet (Iron (ferrous sulfate)) Allergies Allergy/AdvReac Type Severity Reaction Status Date / Time pineapple Allergy Unknown Rash Verified 05/12/22 11:13 shellfish derived Allergy Unknown Swelling Verified 05/12/22 11:13 of Lip/Tongue/Throat SHELLFISH Allergy Intermediate rash, resp Uncoded 05/12/22 11:13 difficulty Review of Systems Review of Systems: CONSTITUTIONAL: Denies fever, chills, or sweats. EYES: Denies visual changes, redness, or discharge. ENT: Denies rhinorrhea, congestion, sore throat, or otalgia. CARDIOVASCULAR: Denies chest pain, palpitations, or edema. RESPIRATORY: Denies cough or dyspnea. GASTROINTESTINAL: Denies abdominal pain, nausea, vomiting, or diarrhea. GENITOURINARY: Denies dysuria or hematuria. SKIN: Denies rash or itching. MUSCULOSKELETAL: Denies back pain, joint pain, or myalgia. NEUROLOGIC: frontal headache with photophobia. PSYCHIATRIC: Denies anxiety or depression. All systems reviewed & are unremarkable except as noted in HPI and below PMFSH Past Medical History Medical History Paranoia Family History Family History Mother Hypertension Congestive heart failure Grandparent Palpitations Grandparent Family member Social History Social History Smoking status: Never smoker Second hand tobacco smoke exposure: No Alcohol intake: never Substance use: never Spiritual care concerns: No Exam Narrative: GENERAL: Well-appearing, well-nourished, and in no acute distress. HEAD: Normocephalic, atraumatic. EYES: PERRLA and EOMI. Photophobia ENT: Nares clear, no rhinorrhea or epistaxis. Mucous membranes moist. NECK: Supple. CHEST: Clear to auscultation. No respiratory distress. HEART: Regular rate and rhythm. No murmur heard. Normal peripheral pulses. ABDOMEN: Soft, nontender, nondistended, normal active bowel sounds. EXTREMITIES: Normal range of motion. No edema. SKIN: Warm, dry, no rash. NEURO: Frontal headache. No focal deficits. Alert and oriented x3. PSYCH: Normal mood and affect. Course Course Emergency Course: Reports feeling better following medications. Denies headache at this time. Vital Signs Vital signs: Vital Signs Temperature 36.9 C 05/12/22 11:04 Pulse Rate 104 H 05/12/22 11:04 Respiratory Rate 18 05/12/22 11:04 Blood Pressure 135/91 H 05/12/22 11:04 Pulse Oximetry 98 05/12/22 11:04 Oxygen Delivery Room Air 05/12/22 11:04 Temperature 36.9 C 05/12/22 11:04 Pulse Rate 122 H 05/12/22 12:53 Respiratory Rate 14 05/12/22 12:53 Blood Pressure 135/91 H 05/12/22 11:04 Pulse Oximetry 99 05/12/22 12:53 Oxygen Delivery Room Air 05/12/22 11:04 MDM - Headache Lab Data Result diagrams: 05/12/22 12:09 05/12/22 12:09 Labs: Lab Results 05/12/22 05/12/22 05/12/22 Range/Units 12:09 12:09 12:09 WBC 8.0 (4.5-10.0) K/mm3 RBC 3.73 L (4.2-5.4) M/mm3 Hgb 9.7 L (12.0-15.0) g/dL Hct
[2022-05-12] MEDS: diphenhydrAMINE HCl INJ 50 MG/ML VIAL 25 MG IV PUSH ×2 (12:14→13:25)
[2022-05-12] MEDS: SODIUM CHLORIDE 0.9% IV 1,000 ML 999 ML IV CONT (12:14)
[2022-05-12] MEDS: PROCHLORPERAZINE EDISYLATE 10 MG/2 ML VIAL IV PUSH (12:16)
--- NOTE | 2022-05-12 12:17 | PC.NURSE ---
Pt to CT scan via stretcher at this time. Fluids infusing.
[2022-05-12 12:21] LABS: Basophils Percent Auto 0.2 % (0.2-1.2); Eosinophils Absolute Auto 0.1 K/mm3 (0-0.3); Eosinophils Percent Auto 1.7 % (0-4.4); Hematocrit 31.6 % (37.0-47.0); Hemoglobin 9.7 g/dL (12.0-15.0); Immature Granulocyte Absolute 0.03 K/mm3 (0.00-0.031); Immature Granulocyte Percent A 0.4 % (0-0.5); Lymphocytes Absolute Auto 0.65 K/mm3 (0.9-3.2); Lymphocytes Percent Auto 8.1 % (18.3-44.2); Mean Corpuscular HGB Conc 30.7 g/dl (32-36); Mean Corpuscular Volume 84.7 fl (80-100); Mean Platelet Volume 9.4 fl (7.4-10.4); Monocytes Absolute Auto 0.5 K/mm3 (0.1-0.6); Monocytes Percent Auto 6.5 % (2.6-8.5); Neutrophils Absolute Auto 6.7 K/mm3 (1.3-6.7); Neutrophils Percent Auto 83.1 % (45.5-73.1); Platelet Count Result 382 k/mm3 (150-375); Red Blood Count 3.73 M/mm3 (4.2-5.4); Red Cell Distribution Width 17.3 % (11.5-14.5)
[2022-05-12 12:29] LABS: Alanine Aminotransferase 28 U/L (6-35); Albumin Level 3.2 g/dL (3.5-5.1); Alkaline Phosphatase 163 U/L (38-126); Anion Gap 5 mmol/L (8-16); Aspartate Amino Transferase 32 U/L (14-36); Bilirubin,Total 0.2 mg/dL (0.2-1.3); Blood Urea Nitrogen 7 mg/dL (7-17); Calcium 8.1 mg/dL (8.4-10.2); Carbon Dioxide 24 mmol/L (22-30); Chloride 108 mmol/L (98-107); Estimated CRCL calculation 120 ml/min; Estimated Glomerular Filt Rate > 60; Glucose 118 mg/dL (65-110); Potassium 3.9 mmol/L (3.4-5.0); Prothrombin Time 12.5 Seconds (11.1-14.7); Sodium 137 mmol/L (137-145); Uric Acid 3.9 mg/dL (2.5-7.5)
[2022-05-12 12:30] LABS: Partial Thromboplastin Time 25.3 SECONDS (22.3-36.8)
[2022-05-12 12:53] VITALS: PULSE 122; RESP 14; O2SAT 99
[2022-05-12 13:23] LABS: Add Urine Microscopic? NO; Appearance Urine Clear (Clear); Bilirubin Urine Negative (Negative); Blood Urine Negative (Negative); Color Urine Yellow (Yellow); Glucose Urine UA Negative (Negative); Ketones Urine Negative (Negative); Leukocyte Esterase Ur Negative LEU/UL (Negative); Nitrate Urine Negative (Negative); Protein Urine Negative (Negative); Specific Grav Ur 1.019 (1.001-1.035); Urobilinogen Urine Negative mg/dL (<2.0)
[2022-05-12 14:06] VITALS: BP 147/90; PULSE 102; RESP 20; O2SAT 98
== END 2022-05-12 14:07 | disposition home or self-care (01) ==
PROVIDERS: General Practice; Emergency Provider Nurse Practitioner; PCP Nurse Practitioner Pediatrics
DX: O90.89 Other complications of the puerperium, not elsewhere classified (principal); R51.9 Headache, unspecified
CPT/HCPCS: 36415; 70450; 80053; 81003; 84550; 85025; 85610; 85730; 96361; 96374; 96375; 96376; 99284; J0780; J1200; J7030

== ENCOUNTER 2022-06-10 06:11 | Emergency (ER) | payer OTHER, SELFPAY ==
[2022-06-10] VITALS (43 sets, daily range): BP systolic 86–164; BP diastolic 57–115; PULSE 73–143; RESP 10–22; O2SAT 98–100
--- NOTE | 2022-06-10 06:25 | ECG_ITS ---
Measurements Intervals [place] Rate: 144 P: 87 [place]: 163 QRS: 14 QRSD: 78 T: 44 QT: 340 QTc: 527 Interpretive Statements SINUS TACHYCARDIA ABNORMAL ECG NO PREVIOUS ECG AVAILABLE FOR COMPARISON Electronically Signed On 06-10-2022 7:59:19 [employer] by Nik Bojorquez D.O.
[2022-06-10 06:50] LABS: Appearance Urine Clear (Clear); Bilirubin Urine Negative (Negative); Blood Urine Negative (Negative); Color Urine Yellow (Yellow); Glucose Urine UA Negative (Negative); Ketones Urine Negative (Negative); Leukocyte Esterase Ur Negative LEU/UL (Negative); Nitrate Urine Negative (Negative); Protein Urine Negative (Negative); Urobilinogen Urine 0.2 mg/dL (<2.0); pH Urine 6.5 (5.0-9.0)
[2022-06-10 07:07] LABS: Amphetamine Screen Urine Negative (Negative); Barbiturate Screen Urine Negative (Negative); Benzodiazepines Screen Urine Negative (Negative); Cannabinoid Screen Urine Negative (Negative); Cocaine Screen Urine Negative (Negative); Methadone Screen Urine Negative (Negative); Opiate Screen Urine Negative (Negative); Phencyclidine Screen Urine Negative (Negative)
[2022-06-10 07:25] LABS: Add Urine Microscopic? NO
--- NOTE | 2022-06-10 07:31 | ED.PSYCH ---
HPI - Psych General Chief Complaint: Psychiatric Symptoms Stated Complaint: insomina, disorganized thoughts, post- Time Seen by Provider: 06/10/22 07:29 Source: patient and family History of Present Illness HPI Narrative: 31 years old -Turkish female brought to the emergency room by private car with her mom. Her mom is telling me that patient called her and told her to take her to the hospital because have trouble sleeping and anxiety. Patient is status post vaginal delivery on May 07, 2022. History of schizophrenia, does not have medications for while, she denies any suicidal or homicidal ideation, been hearing voices lately last 1 was 2 days ago, bad voices, she denied that the voices are asking her to harm herself or to harm anybody else. Patient lives with her who is scheduled for surgery today. She denies any shortness of breath, chest pain, back pain, headache, nausea, vomiting, fever or chills. Patient does not take medicine at home. Related Data Home Medications Medication Instructions Recorded Confirmed ferrous sulfate 325 mg (65 mg 325 mg PO DAILY 05/12/22 05/12/22 iron) tablet (Iron (ferrous sulfate)) Allergies Allergy/AdvReac Type Severity Reaction Status Date / Time pineapple Allergy Unknown Rash Verified 05/12/22 11:13 shellfish derived Allergy Unknown Swelling Verified 05/12/22 11:13 of Lip/Tongue/Throat SHELLFISH Allergy Intermediate rash, resp Uncoded 05/12/22 11:13 difficulty Review of Systems Review of Systems: All systems reviewed & are unremarkable except as noted in HPI and below PMFSH Past Medical History Medical History Paranoia Family History Family History Mother Hypertension Congestive heart failure Grandparent Palpitations Grandparent Family member Social History Social History Smoking status: Never smoker Second hand tobacco smoke exposure: No Alcohol intake: never Substance use: never Spiritual care concerns: No Exam Narrative: General appearance: Well-developed, well-nourished laying down flat in bed, staring at the wall, sometimes answering questions in 2 to 3 minutes after asking. Skin: Normal color Head: Normocephalic, nontraumatic Eyes: Clear conjunctiva ENT: Oropharynx normal, ears normal, nose normal Neck: Supple, nontender Chest and respiratory: Airway patent, no respiratory distress, no accessory muscle use Heart: Tachycardia Abdomen: Soft, nontender, no organomegaly, quiet bowel sounds Vascular: Normal peripheral pulses, normal capillary refill. Musculoskeletal: Normal range of motion, nontender back Neurologic: Alert and oriented ?3, [employer] is normal as tested, no gross motor deficit Course Vital Signs Vital signs: Vital Signs Pulse Rate 122 H 06/10/22 06:51 Blood Pressure 148/106 H 06/10/22 06:51 Pulse Oximetry 100 06/10/22 06:51 Pulse Rate 122 H 06/10/22 06:51 Blood Pressure 148/106 H 06/10/22 06:51 Pulse Oximetry 100 06/10/22 06:51 MDM - Psych Lab Data Result diagrams: 06/10/22 07:37 06/10/22 07:37 Labs: Lab Results 06/10/22 06/10/22 06/10/22 Range/Units 06:39 06:39 07:37 WBC 9.0 (4.5-10.0) K/mm3 RBC 4.78 (4.2-5.4) M/mm3 Hgb 12.1 (12.0-15.0) g/dL Hct 38.4 (37.0-47.0) % MCV 80.3 (80-100) fl MCH 25.3 L (26-34) pg MCHC 31.5 L (32-36) g/dl RDW 17.2 H (11.5-14.5) % Plt Count 489 H (150-375) k/mm3 MPV 9.5 (7.4-10.4) fl Immature
--- NOTE | 2022-06-10 07:38 | PC.NURSE ---
ordered pt. safety breakfast tray.
[2022-06-10 07:51] LABS: Basophils Absolute Auto 0.1 K/mm3 (0.0-0.1); Basophils Percent Auto 0.6 % (0.2-1.2); Eosinophils Percent Auto 0.1 % (0-4.4); Hematocrit 38.4 % (37.0-47.0); Hemoglobin 12.1 g/dL (12.0-15.0); Immature Granulocyte Absolute 0.02 K/mm3 (0.00-0.031); Immature Granulocyte Percent A 0.2 % (0-0.5); Lymphocytes Absolute Auto 1.43 K/mm3 (0.9-3.2); Mean Corpuscular HGB Conc 31.5 g/dl (32-36); Mean Corpuscular Hemoglobin 25.3 pg (26-34); Mean Corpuscular Volume 80.3 fl (80-100); Mean Platelet Volume 9.5 fl (7.4-10.4); Monocytes Absolute Auto 0.8 K/mm3 (0.1-0.6); Neutrophils Absolute Auto 6.6 K/mm3 (1.3-6.7); Neutrophils Percent Auto 74.1 % (45.5-73.1); Platelet Count Result 489 k/mm3 (150-375); Red Blood Count 4.78 M/mm3 (4.2-5.4); Red Cell Distribution Width 17.2 % (11.5-14.5)
[2022-06-10 08:16] LABS: Acetaminophen < 10 ug/mL (10-30); Ethanol < 10 mg/dL (<10); Salicylate < 1.0 mg/dL (2-20)
[2022-06-10 08:17] LABS: Alanine Aminotransferase 18 U/L (6-35); Alkaline Phosphatase 104 U/L (38-126); Anion Gap 17 mmol/L (8-16); Aspartate Amino Transferase 28 U/L (14-36); Bilirubin,Total 0.4 mg/dL (0.2-1.3); Blood Urea Nitrogen 7 mg/dL (7-17); Calcium 9.6 mg/dL (8.4-10.2); Carbon Dioxide 18 mmol/L (22-30); Chloride 102 mmol/L (98-107); Estimated Glomerular Filt Rate > 60; Glucose 165 mg/dL (65-110); Potassium 3.8 mmol/L (3.4-5.0); Sodium 137 mmol/L (137-145)
[2022-06-10 08:21] LABS: SARS-CoV-2 RNA PCR Negative
--- NOTE | 2022-06-10 08:49 | PC.NURSE ---
Up in halls. Pt returned to room and sitting in chair. Mother and sitter at bedside.
[2022-06-10] MEDS: SODIUM CHLORIDE 0.9% IV 1,000 ML 999 ML IV CONT (08:58)
[2022-06-10] MEDS: LORazepam INJ (*CRX) 2 MG/ML VIAL 1 MG IV PUSH (08:58)
--- NOTE | 2022-06-10 09:17 | PC.NURSE ---
PT MEDICALLY CLEARED BY ERP AT THIS TIME.
--- NOTE | 2022-06-10 10:19 | PC.NURSE ---
vrbo to cancel ddimer per erp dr gonzales
--- NOTE | 2022-06-10 10:41 | PC.NURSE ---
Faxed pt chart to [facility] [place] [phone] attn Oleg
--- NOTE | 2022-06-10 11:09 | PC.NURSE ---
Chart faxed to [facility].
--- NOTE | 2022-06-10 15:10 | PC.NURSE ---
[facility] - No Truck [facility] [id number] Trip # [id number] [facility] - No Truck [facility] - No Truck 1259 [facility] - No Truck
== END 2022-06-10 16:05 ==
PROVIDERS: Emergency Medicine; Emergency Provider Emergency Medicine
DX: O99.345 Other mental disorders complicating the puerperium (principal); F20.9 Schizophrenia, unspecified; Z20.822 Contact with and (suspected) exposure to COVID-19; T43.506A Underdosing of unspecified antipsychotics and neuroleptics, initial encounter; R00.0 Tachycardia, unspecified
CPT/HCPCS: 36415; 80053; 80307; 81003; 81025; 84443; 85025; 93005; 96361; 96374; 99285; J2060; J7030; U0003; U0005

== ENCOUNTER 2023-06-08 15:54 | Emergency (ER) | payer OTHER, SELFPAY ==
[2023-06-08 15:56] VITALS: BP 155/90; PULSE 89; RESP 16; TEMP 37.1; O2SAT 99
[2023-06-08] MEDS: LORazepam (*CRX) 0.5 MG TABLET PO (17:52)
--- NOTE | 2023-06-08 18:02 | ED.PSYCH ---
HPI - Psych General Chief Complaint: Psychiatric Symptoms Stated Complaint: intrusive thoughts Time Seen by Provider: 06/08/23 16:09 History of Present Illness HPI Narrative: This is a 32 yo female who presents with complaint of intrusive thoughts that make her anxious. She notes that she is a bahai thoughts and sometimes feels compelled/convicted as she is reading the Bible that she should or should not be doing certain things. She denies any SI or HI. She denies any auditory or visual hallucinations though has had vivid dreams. Denies self injurious behavior such as cutting,etc. 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 He is concerned that sometimes she watches videos on [employer] that cause her to become more anxious. She states this sometimes occurs but that the videos she was watching today had content that was a source of comfort. She is currently menstruating and reports a regular/normal period. No tremors, diarrhea, constipation, chest pain, abdominal pain. She states she was breathing rapidly earlier when she felt anxious but this calmed down. This occurred while they were driving by a [employer]. She and partner acknowledge that there are many stressors. They do not have family around and patient is responsible for caring for the children and had to help him when he had back surgery in the past year. She is currently and not taking any medications. She had previously been prescribed ondansetron and trazodone PRN but denies taking any of these recently; does not believe any pills have been taken. Related Data Home Medications Medication Instructions Recorded Confirmed ferrous sulfate 325 mg (65 mg 325 mg PO DAILY 05/12/22 05/12/22 iron) tablet (Iron (ferrous sulfate)) Allergies Allergy/AdvReac Type Severity Reaction Status Date / Time shellfish derived Allergy Severe Swelling Verified 06/10/22 08:21 of Lip/Tongue/Throat, RESP DIFFICULTY pineapple Allergy Unknown Rash Verified 05/12/22 11:13 Pork/Porcine Containing AdvReac Unknown Unknown Verified 06/09/23 11:40 Products [facility] Past Medical History Medical History (Updated 06/09/23 @ 11:41 by Daysi Molina MD) Paranoia Schizophrenia Spontaneous vaginal delivery 05/2022 Family History Family History Mother Hypertension Congestive heart failure Grandparent Palpitations Grandparent Family member Social History Social History (Updated 06/09/23 @ 11:41 by Daysi Molina MD) Smoking status: Never smoker Second hand tobacco smoke exposure: No Alcohol intake: never Substance use: never Substance use type: does not use Spiritual care concerns: Yes Exam Const: General: healthy appearing, no acute distress and alert; No confusion, diaphoretic or ill appearing Nutritional Appearance: well nourished Orientation/consciousness: patient oriented x3 Limitations: no limitations HENMT: Head: normal to inspection Other: external auditory acuity intact Eyes: Conjunctivae: conjunctivae normal Direct Ophthalmoscopy: no photophobia Neck: Neck: normal visual inspection Resp: Effort & Inspection: normal respiratory effort, not labored, no retractions, not tachypneic and no use of accessory muscles Auscultation: clear to auscultation bilaterally, no crackles, no rales, no rhonchi and no wheezes Cardio: Rate: regular rate GI: Inspection: non-distended GI Palp: Yes Soft to palpation and No Guarding due to palpation present (GI) Skin: General skin exam: normal color, no jaundice and no pallor Neuro: General: patient oriented x3, moves all extremities, no meningeal signs and no focal motor deficits Speech: normal speech Gait exam (Neuro): Normal gait present Extrem: General: normal to inspection Psych: Attitude
== END 2023-06-08 18:30 | disposition home or self-care (01) ==
PROVIDERS: Emergency Provider Student in an Organized Health Care Education/Training Program
DX: F41.9 Anxiety disorder, unspecified (principal); F20.9 Schizophrenia, unspecified
CPT/HCPCS: 99283; A9270

== ENCOUNTER 2023-06-11 02:00 | Emergency (ER) | payer OTHER, SELFPAY ==
--- NOTE | ~2023-06-11 | CT_ITS ---
EXAMINATION: CT brain wo con DATE: 06/11/2023 02:54 INDICATION: Altered mental status. TECHNIQUE: Computed tomography (CT) of the head was performed without intravenous contrast. The mA wa s adjusted according to patient size. Iterative reconstruction technique was employed. The dose-lengt h product was 681.00 mGy-cm. COMPARISON: Head CT 05/12/2022 FINDINGS: There is no intracranial hemorrhage, acute infarction, or abnormal intracranial mass lesion . The ventricles are normal in size. The orbits are normal. There is mild mucosal thickening in right maxillary sinus. The mastoid air cells are normal. IMPRESSION: 1. Normal brain. Reviewed, dictated and finalized at location E. L CASKET MAKER IMPRESSION: 1. Normal brain.
[2023-06-11 02:02] VITALS: BP 148/103; PULSE 116; RESP 16; TEMP 36.3; O2SAT 100
--- NOTE | 2023-06-11 02:34 | ECG_ITS ---
Measurements Intervals [place] Rate: 90 P: 66 [place]: 144 QRS: 13 QRSD: 83 T: 21 QT: 374 QTc: 460 Interpretive Statements SINUS RHYTHM POSSIBLE LEFT ATRIAL ENLARGEMENT BASELINE ARTIFACT- I, II, III, AVR, AVL, AVF BORDERLINE ECG COMPARED TO ECG 06/10/2022 07:29:57 SINUS RHYTHM NOW PRESENT Electronically Signed On 06-11-2023 7:04:57 [employer] by Nik Boojrquez D.O.
[2023-06-11 03:07] VITALS: BP 147/101; PULSE 100; RESP 18; O2SAT 97
[2023-06-11] MEDS: SODIUM CHLORIDE 0.9% IV 1,000 ML 999 ML IV CONT (03:21)
[2023-06-11 03:29] LABS: Basophils Absolute Auto 0.1 K/mm3 (0.0-0.1); Basophils Percent Auto 0.6 % (0.2-1.2); Eosinophils Percent Auto 0.2 % (0-4.4); Hematocrit 41.1 % (37.0-47.0); Immature Granulocyte Absolute 0.04 K/mm3 (0.00-0.031); Immature Granulocyte Percent A 0.4 % (0-0.5); Lymphocytes Absolute Auto 1.57 K/mm3 (0.9-3.2); Lymphocytes Percent Auto 14.7 % (18.3-44.2); Mean Corpuscular HGB Conc 31.6 g/dl (32-36); Mean Corpuscular Hemoglobin 25.9 pg (26-34); Mean Platelet Volume 9.1 fl (7.4-10.4); Monocytes Absolute Auto 0.9 K/mm3 (0.1-0.6); Neutrophils Absolute Auto 8.2 K/mm3 (1.3-6.7); Neutrophils Percent Auto 76.1 % (45.5-73.1); Platelet Count Result 475 k/mm3 (150-375); Red Blood Count 5.01 M/mm3 (4.2-5.4); Red Cell Distribution Width 13.1 % (11.5-14.5); White Blood Count 10.7 K/mm3 (4.5-10.0)
[2023-06-11 03:40] LABS: Ethanol < 10 mg/dL (<10); Lactic Acid Reflex 1.4 mmol/L (0.7-2.0)
[2023-06-11 03:41] LABS: Alanine Aminotransferase 15 U/L (6-35); Albumin Level 4.7 g/dL (3.5-5.1); Alkaline Phosphatase 89 U/L (38-126); Anion Gap 12 mmol/L (8-16); Aspartate Amino Transferase 22 U/L (14-36); Bilirubin,Total 0.4 mg/dL (0.2-1.3); Blood Urea Nitrogen 7 mg/dL (7-17); Calcium 9.5 mg/dL (8.4-10.2); Carbon Dioxide 24 mmol/L (22-30); Chloride 102 mmol/L (98-107); Estimated CRCL calculation 136 ml/min; Estimated Glomerular Filt Rate > 60; Glucose 147 mg/dL (65-110); Potassium 3.2 mmol/L (3.4-5.0); Sodium 138 mmol/L (137-145)
[2023-06-11 03:42] LABS: Acetaminophen < 10 ug/mL (10-30); Salicylate < 1.0 mg/dL (2-20)
[2023-06-11 03:46] LABS: Add Urine Microscopic? YES; Appearance Urine Clear (Clear); Bacteria Urine None Seen /hpf; Bilirubin Urine Negative (Negative); Blood Urine 1+ (Negative); Color Urine Yellow (Yellow); Glucose Urine UA Negative (Negative); Ketones Urine Trace mg/dL (Negative); Leukocyte Esterase Ur Negative LEU/UL (Negative); Nitrate Urine Negative (Negative); Non Pathogenic Casts 0-2; Protein Urine Negative (Negative); RBC Urine 0-2 /hpf (0-2); Specific Grav Ur 1.005 (1.001-1.035); Squamous Epithelial Cell Urine None seen /hpf (Few); Urobilinogen Urine 0.2 mg/dL (<2.0); WBC Urine 0-5 /hpf
[2023-06-11 04:07] LABS: Amphetamine Screen Urine Negative (Negative); Barbiturate Screen Urine Negative (Negative); Benzodiazepines Screen Urine Negative (Negative); Cannabinoid Screen Urine Negative (Negative); Cocaine Screen Urine Negative (Negative); Methadone Screen Urine Negative (Negative); Opiate Screen Urine Negative (Negative); Phencyclidine Screen Urine Negative (Negative)
[2023-06-11 04:11] LABS: Thyroid Stimulating Hormone 0.701 uIU/mL (0.465-4.680)
[2023-06-11] MEDS: POTASSIUM CHLORIDE 20 MEQ PACKET (FOR LIQUID) 40 MEQ PO (04:20)
[2023-06-11 04:33] VITALS: BP 143/103; PULSE 98; RESP 18; O2SAT 100
--- NOTE | 2023-06-11 05:07 | ED.GENADULT ---
HPI - General Adult General Chief complaint: Unspecified Stated complaint: have not slept in 48 hours Time Seen by Provider: 06/11/23 02:15 History of Present Illness HPI narrative: Patient 32-year-old female who presents the emergency department with chief complaint of not sleeping for the last 2 days patient has been very withdrawn lately and has had issues with domestic issues. The patient denies suicidal homicidal ideation but then would stop talking and would just stare off into space and look at her phone. Related Data Home Medications Medication Instructions Recorded Confirmed ferrous sulfate 325 mg (65 mg 325 mg PO DAILY 05/12/22 05/12/22 iron) tablet (Iron (ferrous sulfate)) Allergies Allergy/AdvReac Type Severity Reaction Status Date / Time shellfish derived Allergy Severe Swelling Verified 06/11/23 03:10 of Lip/Tongue/Throat, RESP DIFFICULTY pineapple Allergy Unknown Rash Verified 06/11/23 03:10 Pork/Porcine Containing AdvReac Unknown Unknown Verified 06/11/23 03:10 Products Review of Systems Review of Systems: A 10 system review of systems was completed on the patient and is negative except for what is stated in the HPI. Nursing and ancillary documentation was reviewed. [facility] Past Medical History Medical History Paranoia Schizophrenia Spontaneous vaginal delivery 05/2022 Family History Family History Mother Hypertension Congestive heart failure Grandparent Palpitations Grandparent Family member Social History Social History Smoking status: Never smoker Second hand tobacco smoke exposure: No Alcohol intake: never Substance use: never Substance use type: does not use Spiritual care concerns: Yes Exam Narrative: GENERAL: Well-appearing, well-nourished, and in no acute distress. HEAD: Normocephalic, atraumatic. EYES: PERRLA and EOMI. ENT: Nares clear, no rhinorrhea or epistaxis. Mucous membranes moist. NECK: Supple. CHEST: Clear to auscultation. No respiratory distress. HEART: Regular rate and rhythm. No murmur heard. Normal peripheral pulses. ABDOMEN: Soft, nontender, nondistended, normal active bowel sounds. EXTREMITIES: Normal range of motion. No edema. SKIN: Warm, dry, no rash. NEURO: No focal deficits. Alert and oriented x3. PSYCH: Normal mood and affect. Course Vital Signs Vital signs: Vital Signs Temperature 36.3 C L 06/11/23 02:02 Pulse Rate 116 H 06/11/23 02:02 Respiratory Rate 16 06/11/23 02:02 Blood Pressure 148/103 H 06/11/23 02:02 Pulse Oximetry 100 06/11/23 02:02 Oxygen Delivery Room Air 06/11/23 02:02 Temperature 36.3 C L 06/11/23 02:02 Pulse Rate 98 06/11/23 04:33 Respiratory Rate 18 06/11/23 04:33 Blood Pressure 143/103 H 06/11/23 04:33 Pulse Oximetry 100 06/11/23 04:33 Oxygen Delivery Room Air 06/11/23 02:02 Medical Decision Making MDM Narrative Medical decision making narrative: Differential diagnosis includes toxic ingestion, schizophrenia, psychosis, intracranial hemorrhage CT head was negative Laboratory studies were obtained on the patient which showed white count 10.7 electrolytes are within normal limits with the exception of potassium of 3.2 lactic acid is 1.4 liver enzymes are normal TSH was 0.701 Urinalysis showed no evidence of UTI salicylates and acetaminophen and urine drug screen were negative EtOH was negative The patient is medically cleared for psychiatric evaluation referral transfer and admission While attempting to get the patient's COVID test the patient started to talk again saying that she did not want to do that and really she just wanted to go home and denied suicidal or homicidal ideation Vital Signs Vital Signs:
--- NOTE | 2023-06-11 05:17 | PC.NURSE ---
Terrie with Crisis stated that she would have someone out shortly to evaluate the pt.
--- NOTE | 2023-06-11 07:08 | PC.NURSE ---
Called to inform crisis that pt is being put up for discharge.
== END 2023-06-11 07:11 | disposition home or self-care (01) ==
PROVIDERS: Emergency Provider Emergency Medicine; PCP Nurse Practitioner Pediatrics
DX: F41.9 Anxiety disorder, unspecified (principal); R94.31 Abnormal electrocardiogram [ECG] [EKG]; F20.0 Paranoid schizophrenia
CPT/HCPCS: 36415; 70450; 80053; 80307; 81001; 81025; 83605; 84443; 85025; 93005; 99284; A9270; J7030

== ENCOUNTER 2023-06-11 16:44 | Emergency (ER) | payer OTHER, SELFPAY ==
[2023-06-11 16:48] VITALS: BP 157/107; PULSE 84; RESP 18; TEMP 36.6; O2SAT 100
--- NOTE | 2023-06-11 16:52 | ED.PSYCH ---
HPI - Psych General Chief Complaint: Psychiatric Symptoms <NIKHIL Mosquera Last Filed: 06/12/23 03:24> Stated Complaint: not talking <NIKHIL Mosquera Last Filed: 06/12/23 03:24> Time Seen by Provider: 06/11/23 16:47 <NIKHIL Mosquera Last Filed: 06/12/23 03:24> Source: patient and old records reviewed <NIKHIL Mosquera Last Filed: 06/12/23 03:24> Mode of arrival: EMS <NIKHIL Mosquera Last Filed: 06/12/23 03:24> Limitations: clinical condition <NIKHIL Mosquera Last Filed: 06/12/23 03:24> History of Present Illness HPI Narrative: Patient is a 32 y/o female who presents to the ED via PD with report of AMS. Per PD report, patient was found wondering around in the parking lot today aimlessly, staring off into space, not answering questions, or cooperating with police/staff. She was seen in our facility earlier this morning for paranoia/anxiety, but also refused to speak to staff the majority of the visit. She did deny SI/HI and was discharged. Patient refusing to speak currently. Does not provide any information. Per record review, patient has possible hx of schizophrenia. She has had similar episodes of mutism reported but did speak to EDP on separate visit 06/08/23. It does not appear patient is currently on any psychiatric medications. Possibly on a short course of Risperidone last Jun. 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 <NIKHIL Mosquera Last Filed: 06/12/23 03:24> Related Data Home Medications: Home Medications Medication Instructions Recorded Confirmed ferrous sulfate 325 mg (65 mg 325 mg PO DAILY 05/12/22 05/12/22 iron) tablet (Iron (ferrous sulfate)) <NIKHIL Mosquera Last Filed: 06/12/23 03:24> Allergies/Adverse Reactions: Allergies Allergy/AdvReac Type Severity Reaction Status Date / Time shellfish derived Allergy Severe Swelling Verified 06/11/23 03:10 of Lip/Tongue/Throat, RESP DIFFICULTY pineapple Allergy Unknown Rash Verified 06/11/23 03:10 Pork/Porcine Containing AdvReac Unknown Unknown Verified 06/11/23 03:10 Products <Malina Cartwright PA-C - Last Filed: 06/12/23 03:24> Review of Systems Review of Systems: ROS unobtainable: Yes unobtainable due to medical condition and unobtainable due to mental status <Malina Cartwright PA-C - Last Filed: 06/12/23 03:24> PMFSH Past Medical History Medical History: Medical History Paranoia Schizophrenia Spontaneous vaginal delivery 05/2022 <Malina Cartwright PA-C - Last Filed: 06/12/23 03:24> Family History Family History: Family History Mother Hypertension Congestive heart failure Grandparent Palpitations Grandparent Family member <Malina Cartwright PA-C - Last Filed: 06/12/23 03:24> Social History Social History: Social History Smoking status: Never smoker Second hand tobacco smoke exposure: No Alcohol intake: never Substance use: never Substance use type: unknown Spiritual care concerns: Yes <Malina Cartwright PA-C - Last Filed: 06/12/23 03:24> Exam Const: General: no acute distress and alert <Malina Cartwright PA-C - Last Filed: 06/12/23 03:24> Nutritional Appearance: well nourished <Malina Cartwright PA-C - Last Filed: 06/12/23 03:24> Limitations: altered mental status <Malina Cartwright PA-C - Last Filed: 06/12/23 03:24> HENMT: Head: normal to inspection <Malina Cartwright PA-C - Last Filed: 06/12/23 03:24> Eyes: Conjunctivae: conjunctivae normal <Malina Cartwright PA-C - Last Filed: 06/12/23 03:24> Pupils: Equal, round and reactive pup
--- NOTE | 2023-06-11 17:08 | PC.NURSE ---
Attempted multiple times to speak with pt. currently no response from pt, she is staring off. pt gives no eye contact, pt did allow for covid test to be completed, again with no words shared. offered food and drink.
[2023-06-11 17:30] LABS: Influenza A QL RT-PCR Negative (Negative); Influenza B QL RT-PCR Negative (Negative); SARS-CoV-2 RNA PCR Negative (Negative)
--- NOTE | 2023-06-11 19:27 | PC.NURSE ---
Report received from TREMAINE Manuel. Assumed care of patient at this time.
--- NOTE | 2023-06-11 23:21 | PC.NURSE ---
Patient left her room and started to wander the hallway carrying her water cup. Patient still not speaking to or looking at staff. Patient was redirected to her room by this RN, lead manufacturing engineering tech, and 3 security. Patient was noted to be sitting in her own urine on bed. The bed was changed and patient offered change of clothes into green scrubs. Patient still did not speak or acknowledge staff. Patient started to scream at staff who were assisting her in trying to change her wet clothes. Patient screamed and then started to pace room. Security remains at bedside to assist keeping patient in her room. Patient belongings taken away and placed in locked cabinet for safety precautions. Patient continues to stare off and not acknowledge staff and continues to not speak. ERP and artifacts conservator notified. New orders placed for patient if she becomes aggressive.
--- NOTE | 2023-06-11 23:39 | PC.NURSE ---
Patient has electronics repair technician and security at bedside to keep her in room. Patient walking in circles in room, still not speaking or acknowledging anyone. Patient has change of clothes in room as well.
--- NOTE | 2023-06-12 00:29 | PC.NURSE ---
0000 Nataliya from [facility] calls to inform this RN that patient has been accepted by Dr. Flores for schizophrenia. Room number is 5332A at [facility]. Nataliya states she will have RN call back for report.
--- NOTE | 2023-06-12 01:01 | PC.NURSE ---
Report given to Jake RN at [facility], [place], operated by [facility]. He stated to call [phone] when patient is leaving.
== END 2023-06-12 03:27 ==
PROVIDERS: Emergency Medicine; Emergency Provider Physician Assistant; PCP Nurse Practitioner Pediatrics
DX: F20.2 Catatonic schizophrenia (principal); Z11.52 Encounter for screening for COVID-19
CPT/HCPCS: 36415; 70450; 80053; 80307; 81001; 81025; 83605; 84443; 85025; 87636; 93005; 99285; A9270; J7030

== ENCOUNTER 2024-01-23 17:45 | Emergency (ER) | payer OTHER, SELFPAY ==
[2024-01-23] VITALS (24 sets, daily range): BP systolic 115–148; BP diastolic 81–106; PULSE 63–84; RESP 11–18; TEMP 36.5; O2SAT 97–100
--- NOTE | ~2024-01-23 | CT_ITS ---
CT abdomen pelvis w con Ordering provider: Mickie Cavazos PA-C History: . epigastric, RLQ and LLQ pain . Comparison: None. Technique: CT abdomen with IV and without oral contrast. Radiation reduction technique utilized. DLP is 503.45 mGy. 100 mL Omnipaque 350 was given IV. Findings: VISUALIZED LOWER CHEST: Dependent atelectatic changes. UPPER ABDOMINAL ORGANS: Liver: Normal. Gallbladder: Status post cholecystectomy. Spleen: Normal. Stomach/duodenum: Normal. Pancreas: Normal. Adrenals: Normal. Kidneys: 4 mm stone in the left kidney midpole. No hydronephrotic changes. Urinary bladder: Underfilled. Uterus: Retroverted. VISUALIZED BOWEL AND MESENTERY: No evidence of diverticulitis. Fecal material is loaded in the colon which may indicate constipation. No evidence of appendicitis. The bowel is otherwise normal. No free air or free fluid. No mesenteric lymphadenopathy. RETROPERITONEUM: Normal aorta. No retroperitoneal lymphadenopathy. MUSCULOSKELETAL: The superficial soft tissues are normal. Normal spine. IMPRESSION: Tiny stone in the left kidney midpole. No evidence of appendicitis, diverticulitis or intestinal obstruction. Constipation. Reviewed, dictated and finalized at location A.
--- NOTE | 2024-01-23 21:05 | ECG_ITS ---
Test Date: 2024-01-23 21:20:35 Measurements Intervals [place] Rate: 66 P: 26 KS: 147 QRS: 10 QRSD: 81 T: 5 QT: 393 QTc: 414 Interpretive Statements SINUS RHYTHM No previous ECG available for comparison Electronically Signed On 01-24-2024 13:31:54 CDT by Clyde Juárez M.D.
--- NOTE | 2024-01-23 21:06 | ED.ABDPAIN ---
HPI - Abdominal Pain General Chief Complaint: Abdominal Pain Stated Complaint: upper mid abd pain Time Seen by Provider: 01/23/24 20:09 History of Present Illness HPI narrative: 33-year-old female with past medical history schizophrenia and cholecystectomy presents to the emergency department for intermittent abdominal pain for 1 week. Patient states the pain is in her epigastrium, right lower and left lower quadrants. She denies aggravating or alleviating factors. States she is not in significant pain at this moment. She went to urgent care prior to arrival were she had a negative test was told to come to the ED for further evaluation. States she may need an ultrasound to ensure she is not having an ectopic , although she did have a negative test at urgent care. She denies dysuria or hematuria, chest pain or shortness of breath, cough or congestion, diarrhea or obstipation. Last bowel movement was today normal. LMP 1 week ago and normal. denies fever. Related Data Home Medications Medication Instructions Recorded Confirmed ferrous sulfate 325 mg (65 mg 325 mg PO DAILY 05/12/22 05/12/22 iron) tablet (Iron (ferrous sulfate)) Allergies Allergy/AdvReac Type Severity Reaction Status Date / Time shellfish derived Allergy Severe Swelling Verified 06/11/23 03:10 of Lip/Tongue/Throat, RESP DIFFICULTY pineapple Allergy Unknown Rash Verified 06/11/23 03:10 Pork/Porcine Containing AdvReac Unknown Unknown Verified 06/11/23 03:10 Products Review of Systems Review of Systems: CONSTITUTIONAL: Denies fever, chills, or sweats. EYES: Denies visual changes, redness, or discharge. ENT: Denies rhinorrhea, congestion, sore throat, or otalgia. CARDIOVASCULAR: Denies chest pain, palpitations, or edema. RESPIRATORY: Denies cough or dyspnea. GASTROINTESTINAL: See HPI GENITOURINARY: Denies dysuria or hematuria. SKIN: Denies rash or itching. MUSCULOSKELETAL: Denies back pain, joint pain, or myalgia. NEUROLOGIC: Denies headache, numbness, or weakness. PSYCHIATRIC: Denies anxiety or depression. [facility] Past Medical History Medical History Paranoia Schizophrenia Spontaneous vaginal delivery 05/2022 Family History Family History Mother Hypertension Congestive heart failure Grandparent Palpitations Grandparent Family member Social History Social History Smoking status: Never smoker Second hand tobacco smoke exposure: No Alcohol intake: never Substance use: never Substance use type: unknown Spiritual care concerns: Yes Exam Narrative: GENERAL: Well-appearing, well-nourished, and in no acute distress. Resting comfortably in exam bed HEAD: Normocephalic, atraumatic. EYES: PERRLA and EOMI. ENT: Nares clear, no rhinorrhea or epistaxis. Mucous membranes moist. NECK: Supple. CHEST: Clear to auscultation. No respiratory distress. HEART: Regular rate and rhythm. No murmur heard. Normal peripheral pulses. ABDOMEN: Normoactive bowel sounds. mild tenderness in the epigastrium. No rebound or guarding or rigidity. No CVA tenderness. EXTREMITIES: Normal range of motion. No edema. SKIN: Warm, dry, no rash. NEURO: No focal deficits. Alert and oriented x3 Course Vital Signs Vital signs: Vital Signs Temperature 97.7 F 01/23/24 17:48 Pulse Rate 76 01/23/24 17:48 Respiratory Rate 18 01/23/24 17:48 Blood Pressure 134/84 01/23/24 17:48 Pulse Oximetry 97 01/23/24 17:48 Temperature 97.7 F 01/23/24 17:48 Pulse Rate 70 01/23/24 23:32 Respiratory Rate 16 01/23/24 23:32 Blood Pressure 125/81 01/23/24 23:32 Pulse Oximetry 100 01/23/24 23:32 MDM - Abdominal Pain MDM Narrative Medical decision making narrative: 33-y
[2024-01-23] MEDS: ONDANSETRON INJ 4 MG/2 ML VIAL IV PUSH (21:31)
[2024-01-23] MEDS: FAMOTIDINE 20 MG/2 ML VIAL IV PUSH (21:32)
[2024-01-23 21:34] LABS: Basophils Absolute Auto 0.1 K/mm3 (0.0-0.1); Basophils Percent Auto 0.5 % (0.2-1.2); Eosinophils Absolute Auto 0.1 K/mm3 (0-0.3); Eosinophils Percent Auto 1.3 % (0-4.4); Immature Granulocyte Absolute 0.02 K/mm3 (0.00-0.031); Immature Granulocyte Percent A 0.2 % (0-0.5); Lymphocytes Absolute Auto 2.56 K/mm3 (0.9-3.2); Lymphocytes Percent Auto 25.6 % (18.3-44.2); Mean Corpuscular HGB Conc 31.6 g/dl (32-36); Mean Corpuscular Hemoglobin 26.1 pg (26-34); Mean Corpuscular Volume 82.6 fl (80-100); Mean Platelet Volume 9.4 fl (7.4-10.4); Monocytes Absolute Auto 0.7 K/mm3 (0.1-0.6); Monocytes Percent Auto 6.7 % (2.6-8.5); Neutrophils Absolute Auto 6.6 K/mm3 (1.3-6.7); Neutrophils Percent Auto 65.7 % (45.5-73.1); Platelet Count Result 401 k/mm3 (150-375)
[2024-01-23 21:47] LABS: Alanine Aminotransferase 13 U/L (6-35); Albumin Level 4.4 g/dL (3.5-5.1); Alkaline Phosphatase 98 U/L (38-126); Anion Gap 8 mmol/L (4-12); Aspartate Amino Transferase 22 U/L (14-36); Bilirubin,Total 0.2 mg/dL (0.2-1.3); Blood Urea Nitrogen 10 mg/dL (7-17); Calcium 9.4 mg/dL (8.4-10.2); Carbon Dioxide 27 mmol/L (22-30); Chloride 103 mmol/L (98-107); Estimated CRCL calculation 104 ml/min; Estimated Glomerular Filt Rate > 60; Glucose 92 mg/dL (65-110); Lactic Acid Reflex 0.8 mmol/L (0.7-2.0); Lipase 115 U/L (23-300); Sodium 138 mmol/L (137-145)
[2024-01-23 21:58] LABS: SPREG INTERNAL CONTROL Positive; Serum Qual hCG Negative
[2024-01-23 22:15] LABS: Appearance Urine Clear (Clear); Bacteria Urine None Seen /hpf; Bilirubin Urine Negative (Negative); Blood Urine Trace (Negative); Color Urine Yellow (Yellow); Glucose Urine UA Negative (Negative); Ketones Urine Trace mg/dL (Negative); Leukocyte Esterase Ur Negative LEU/UL (Negative); Nitrate Urine Negative (Negative); Non Pathogenic Casts 0-2; Protein Urine Negative (Negative); Specific Grav Ur 1.029 (1.001-1.035); Squamous Epithelial Cell Urine Occasional /hpf (Few); WBC Urine 0-5 /hpf (0-3)
[2024-01-23 22:20] LABS: Add Urine Microscopic? YES
[2024-01-24 00:01] VITALS: BP 122/69; PULSE 95; RESP 16; O2SAT 98
== END 2024-01-24 00:03 | disposition home or self-care (01) ==
PROVIDERS: Emergency Provider Physician Assistant; PCP Nurse Practitioner Pediatrics
DX: N20.0 Calculus of kidney (principal); K59.00 Constipation, unspecified
CPT/HCPCS: 36415; 74177; 80053; 81001; 81025; 83605; 83690; 84703; 85025; 93005; 96374; 96375; 99284; J2405; Q9967

== ENCOUNTER 2024-07-31 14:31 | Emergency (ER) | payer OTHER, SELFPAY ==
--- NOTE | 2024-07-31 14:45 | PC.NURSE ---
Jayla OAKLEY has arrived to the ED.
[2024-07-31 15:52] VITALS: BP 150/92; PULSE 143; RESP 14; TEMP 37.3; O2SAT 99
--- NOTE | 2024-07-31 17:04 | ED_ITS ---
HPI - Psych General Chief Complaint: Psychiatric Symptoms <Daysi Molina MD - Last Filed: 07/31/24 19:40> Stated Complaint: psych <Daysi Molina MD - Last Filed: 07/31/24 19:40> Time Seen by Provider: 07/31/24 15:58 <Daysi Molina MD - Last Filed: 07/31/24 19:40> Source: patient (at triage) and family ( at triage) <Daysi Molina MD - Last Filed: 07/31/24 19:40> Mode of arrival: ambulatory <Daysi Molina MD - Last Filed: 07/31/24 19:40> Limitations: other (selective mutism; not communicating with provider) <Daysi Molina MD - Last Filed: 07/31/24 19:40> History of Present Illness HPI Narrative: Patient has a history of schizophrenia and bipolar disorder. At triage her had stated that she was having visual and auditory hallucinations. She had cleaned that her has a pedophile and she cannot leave her children with him and had been noted to call the police while in triage. Her had alleged they said that she has not been taking her medications. Triage nurses noted that she had been refusing treatment, pacing and waiting for police to arrive. Patient refuses to speak during my assessment. Her eyes remain closed she does not respond. Multiple attempts were made with similar. Protecting her airway. <Daysi Molina MD - Last Filed: 07/31/24 19:40> Related Data Home Medications: Home Medications ?Medication ?Instructions ?Recorded ?Confirmed ?Last Taken ?Type ferrous sulfate 325 mg (65 mg 325 mg PO DAILY 05/12/22 05/12/22 05/11/22 History iron) tablet (Iron (ferrous sulfate)) <Daysi Molina MD - Last Filed: 07/31/24 19:40> Allergies/Adverse Reactions: Allergies Allergy/AdvReac Type Severity Reaction Status Date / Time shellfish derived Allergy Severe Swelling Verified 06/11/23 03:10 of Lip/Tongue/Throat, RESP DIFFICULTY pineapple Allergy Unknown Rash Verified 06/11/23 03:10 Pork/Porcine Containing AdvReac Unknown Unknown Verified 06/11/23 03:10 Products <Daysi Molina MD - Last Filed: 07/31/24 19:40> [facility] Past Medical History Medical History: Medical History Schizophrenia Spontaneous vaginal delivery 05/2022 Paranoia <Daysi Molina MD - Last Filed: 07/31/24 19:40> Family History Family History: Family History Mother Hypertension Congestive heart failure Grandparent Palpitations Grandparent Family member <Daysi Molina MD - Last Filed: 07/31/24 19:40> Social History Social History: Social History Smoking status: Never smoker Second hand tobacco smoke exposure: No Alcohol intake: never Substance use: never Substance use type: unknown Spiritual care concerns: Yes <Daysi Molina MD - Last Filed: 07/31/24 19:40> Exam 2 Narrative: GENERAL: Well-appearing, well-nourished, and in no acute distress. No signs of trauma. HEAD: Normocephalic, atraumatic. EYES: Non injected, non icteric (once she finally opens eyes, able to assess) ENT: Nares clear, no rhinorrhea or epistaxis. NECK: Supple. Demonstrates easy ROM/movement when nods yes/no CHEST: No respiratory distress. Lungs are clear to auscultation without wheezes or crackles HEART: Tachycardic rate and rhythm. . ABDOMEN: Soft, nondistended. EXTREMITIES: Normal range of motion. No lower extremity edema. SKIN: Warm, dry, no rash on exposed skin NEURO: No focal deficits. A PSYCH: Congruent mood and affect which is to say nonverbal though this appears to be selective/voluntary. Appearance: Well kempt. Behavior (once sitting upright): Calm, good eye contact, in no acute distress. <Daysi Molina MD - Last Filed: 07/31/24 19:40> Course Course Emergency Course: [facility] 0220: Evaluated by crisis. Safety plan. D/C'd w/ f/u at [facility]. <Oleg Tapia MD - Last Filed: 08/01/24 02:20> Vital Signs Vital signs: Vital Signs Temperature 99.2 F 07/31/24 15:52 Pulse Rate 143 H 07/31/24 15:52 Respiratory Rate 14 07/31/24 15:52 Blood Pressure 150/92 H 07/31/24 15:52 Pulse Oximetry 99 07/31/24 15:52 Temperature 97.7 F 07/31/24 19:33 Pulse Rate 116 H 07/31/24 19:33 Respiratory Rate 20 07/31/24 19:33 Blood Pressure 126/87 07/31/24 19:33 Pulse Oximetry 100 07/31/24 19:33 <Daysi Molina MD - Last Filed: 07/31/24 19:40> Vital Signs Temperature 99.2 F 07/31/24 15:52 Pulse Rate 143 H 07/31/24 15:52 Respiratory Rate 14 07/31/24 15:52 Blood Pressure 150/92 H 07/31/24 15:52 Pulse Oximetry 99 07/31/24 15:52 Temperature 97.7 F 07/31/24 19:33 Pulse Rate 116 H 07/31/24 19:33 Respiratory Rate 20 07/31/24 19:33 Blood Pressure 126/87 07/31/24 19:33 Pulse Oximetry 100 07/31/24 19:33 <Oleg Tapia MD - Last Filed: 08/01/24 02:20> MDM - Psych MDM Narrative Medical decision making narrative: Patient presents with report of psychiatric concerns per her . She has a history of schizophrenia bipolar history by report and he had reported that she was having visual and auditory hallucinations and noncompliant with her medications. She was agitated in triage, pacing, and having called the police as she had stated that her was a pedophile and she could not leave her children alone with him. In the emergency department she is afebrile with vital signs notable for significant tachycardia as well as hypertension. History of involuntary psych hospitalization in June of 2023. Initially ordered head CT when she was questionably catatonic verses displaying selective mutism on my exam. However, she is refusing CT scan verbally after Ativan given thus this is no longer needed and order cancelled. Attempted to reassessed patient at bedside after this but she remains non communicative with me. I did reassess patient at approximately 7:20 p.m. she is seated upright and looks ahead, makes eye contact. She continues to refuse to speak but but she does shake her head yes and no and indicates that she is not having any chest pain, abdominal pain, pain anywhere else, or shortness of breath. When asked if she is able to give a urine sample at this time she shakes her head no. She also indicates that she is not hungry. Her IV fluids are going for her tachycardia. D-dimer was negative. Patient is still pending urinalysis, the result of some of her lab work, and repeat documentation of updated vital signs after fluid bolus. She is signed out to oncoming attending physician pending these things as well as re- assessment. <Daysi Molina MD - Last Filed: 07/31/24 19:40> Differential Diagnosis Differential diagnosis: Likely acute psychosis, chronic schizophrenia (with possible decompensation), suicidal ideation, bipolar disorder, depression, drug-induced psychotic disorder, acute anxiety and other (paranoia) <Daysi Molina MD - Last Filed: 07/31/24 19:40> Lab Data Attestation: I reviewed the patient's lab results. <Daysi Molina MD - Last Filed: 07/31/24 19:40> Result diagrams: 07/31/24 19:03 07/31/24 19:03 <Daysi Molina MD - Last Filed: 07/31/24 19:40> Labs: Lab Results 07/31/24 07/31/24 07/31/24 Range/Units 19:03 22:04 22:13 WBC 9.7 (4.5-10.0) K/mm3 RBC 4.79 (4.2-5.4) M/mm3 Hgb 12.0 (12.0-15.0) g/dL Hct 37.9 (37.0-47.0) % MCV 79.1 L (80-100) fl MCH 25.1 L (26-34) pg MCHC 31.7 L (32-36) g/dl RDW 14.0 (11.5-14.5) % Plt Count 476 H (150-375) k/mm3 MPV 9.0 (7.4-10.4) fl Immature Gran % (Auto) 0.3 (0-0.5) % Neut % (Auto) 81.4 H (45.5-73.1) % Lymph % (Auto) 11.9 L (18.3-44.2) % [place] % (Auto) 6.2 (2.6-8.5) % Eos % (Auto) 0.0 (0-4.4) % Baso % (Auto) 0.2 (0.2-1.2) % Lymph # (Auto) 1.15 (0.9-3.2) K/mm3 [place] # (Auto) 0.6 (0.1-0.6) K/mm3 Eos # (Auto) 0.0 (0-0.3) K/mm3 Baso # (Auto) 0.0 (0.0-0.1) K/mm3 Abs Immat Gran (auto) 0.03 (0.00-0.031) K/mm3 Absolute Neuts (auto) 7.9 H (1.3-6.7) K/mm3 Absolute Nucleated RBC 0.000 (0.0-0.012) K/mm3 Nucleated RBC % 0.0 (0.0-0.2) % D-Dimer < 0.27 (<0.48) ug/mL Sodium 134 L (137-145) mmol/L Potassium 3.8 (3.4-5.0) mmol/L Chloride 106 (98-107) mmol/L Carbon Dioxide 23 (22-30) mmol/L Anion Gap 5 (4-12) mmol/L BUN 8 (7-17) mg/dL Creatinine 0.70 (0.7-1.0) mg/dL Estim Creat Clear Calc Not Reportable Estimated GFR > 60 (59 - ) Glucose 107 (65-110) mg/dL Calcium 9.2 (8.4-10.2) mg/dL Total Bilirubin 0.3 (0.2-1.3) mg/dL AST 20 (14-36) U/L ALT 13 (6-35) U/L Alkaline Phosphatase 91 (38-126) U/L Total Creatine Kinase 71 (30-135) U/L Total Protein 8.0 (6.3-8.2) g/dL Albumin 4.4 (3.5-5.1) g/dL TSH 0.743 (0.465-4.680) uIU/mL Urine Color Yellow (Yellow) Urine Appearance Clear (Clear) Urine pH 5.5 (5.0-9.0) Ur Specific [place] 1.020 (1.001-1.035) Urine Protein Negative (Negative) mg/dL Urine Glucose (UA) Negative (Negative) mg/dL Urine Ketones 3+ H (Negative) mg/dL Ur Blood (Man) 2+ H (Negative) Urine Nitrate Negative (Negative) Urine Bilirubin Negative (Negative) Urine Urobilinogen 0.2 (<2.0) mg/dL Leukocyte Esterase Rfl Negative (Negative) TIMOTHY/UL Urine RBC 3-5 H (0-2) /hpf Urine WBC 0-5 (0-3) /hpf Ur Squamous Epith Cells None seen (Few) /hpf Urine Bacteria None seen /hpf Urine Casts 0-2 POC Urine HCG, Qual Negative (Negative) Salicylates < 1.0 L (2-20) mg/dL Urine Opiates Screen Negative (Negative) Urine Methadone Screen Negative (Negative) Acetaminophen < 10 L (10-30) ug/mL Ur Barbiturates Screen Negative (Negative) Ur Phencyclidine Scrn Negative (Negative) Ur Amphetamine Screen Negative (Negative) U Benzodiazepines Scrn Negative (Negative) Urine Cocaine Screen Negative (Negative) U Cannabinoids Screen Negative (Negative) Ethyl Alcohol < 10 (<10) mg/dL Influenza A (RT-PCR) Negative (Negative) Influenza B (RT-PCR) Negative (Negative) SARS-CoV-2 RNA (RT-PCR) Negative (Negative) <Daysi Molina MD - Last Filed: 07/31/24 19:40> Lab Results 07/31/24 07/31/24 07/31/24 Range/Units 19:03 22:04 22:13 WBC 9.7 (4.5-10.0) K/mm3 RBC 4.79 (4.2-5.4) M/mm3 Hgb 12.0 (12.0-15.0) g/dL Hct 37.9 (37.0-47.0) % MCV 79.1 L (80-100) fl MCH 25.1 L (26-34) pg MCHC 31.7 L (32-36) g/dl RDW 14.0 (11.5-14.5) % Plt Count 476 H (150-375) k/mm3 MPV 9.0 (7.4-10.4) fl Immature Gran % (Auto) 0.3 (0-0.5) % Neut % (Auto) 81.4 H (45.5-73.1) % Lymph % (Auto) 11.9 L (18.3-44.2) % [place] % (Auto) 6.2 (2.6-8.5) % Eos % (Auto) 0.0 (0-4.4) % Baso % (Auto) 0.2 (0.2-1.2) % Lymph # (Auto) 1.15 (0.9-3.2) K/mm3 [place] # (Auto) 0.6 (0.1-0.6) K/mm3 Eos # (Auto) 0.0 (0-0.3) K/mm3 Baso # (Auto) 0.0 (0.0-0.1) K/mm3 Abs Immat Gran (auto) 0.03 (0.00-0.031) K/mm3 Absolute Neuts (auto) 7.9 H (1.3-6.7) K/mm3 Absolute Nucleated RBC 0.000 (0.0-0.012) K/mm3 Nucleated RBC % 0.0 (0.0-0.2) % D-Dimer < 0.27 (<0.48) ug/mL Sodium 134 L (137-145) mmol/L Potassium 3.8 (3.4-5.0) mmol/L Chloride 106 (98-107) mmol/L Carbon Dioxide 23 (22-30) mmol/L Anion Gap 5 (4-12) mmol/L BUN 8 (7-17) mg/dL Creatinine 0.70 (0.7-1.0) mg/dL Estim Creat Clear Calc Not Reportable Estimated GFR > 60 (59 - ) Glucose 107 (65-110) mg/dL Calcium 9.2 (8.4-10.2) mg/dL Total Bilirubin 0.3 (0.2-1.3) mg/dL AST 20 (14-36) U/L ALT 13 (6-35) U/L Alkaline Phosphatase 91 (38-126) U/L Total Creatine Kinase 71 (30-135) U/L Total Protein 8.0 (6.3-8.2) g/dL Albumin 4.4 (3.5-5.1) g/dL TSH 0.743 (0.465-4.680) uIU/mL Urine Color Yellow (Yellow) Urine Appearance Clear (Clear) Urine pH 5.5 (5.0-9.0) Ur Specific [place] 1.020 (1.001-1.035) Urine Protein Negative (Negative) mg/dL Urine Glucose (UA) Negative (Negative) mg/dL Urine Ketones 3+ H (Negative) mg/dL Ur Blood (Man) 2+ H (Negative) Urine Nitrate Negative (Negative) Urine Bilirubin Negative (Negative) Urine Urobilinogen 0.2 (<2.0) mg/dL Leukocyte Esterase Rfl Negative (Negative) TIMOTHY/UL Urine RBC 3-5 H (0-2) /hpf Urine WBC 0-5 (0-3) /hpf Ur Squamous Epith Cells None seen (Few) /hpf Urine Bacteria None seen /hpf Urine Casts 0-2 POC Urine HCG, Qual Negative (Negative) Salicylates < 1.0 L (2-20) mg/dL Urine Opiates Screen Negative (Negative) Urine Methadone Screen Negative (Negative) Acetaminophen < 10 L (10-30) ug/mL Ur Barbiturates Screen Negative (Negative) Ur Phencyclidine Scrn Negative (Negative) Ur Amphetamine Screen Negative (Negative) U Benzodiazepines Scrn Negative (Negative) Urine Cocaine Screen Negative (Negative) U Cannabinoids Screen Negative (Negative) Ethyl Alcohol < 10 (<10) mg/dL Influenza A (RT-PCR) Negative (Negative) Influenza B (RT-PCR) Negative (Negative) SARS-CoV-2 RNA (RT-PCR) Negative (Negative) <Oleg Tapia MD - Last Filed: 08/01/24 02:20> Discharge Plan Discharge Clinical Impression: Thrombocytosis, Psychiatric complaint, Hallucinations <Daysi Molina MD - Last Filed: 07/31/24 19:40> Patient Disposition: Home, Self-Care <Daysi Molina MD - Last Filed: 07/31/24 19:40> Condition: Stable <Daysi Molina MD - Last Filed: 07/31/24 19:40> Instructions: Antibiotic Form, Schizophrenia (ED) <Daysi Molina MD - Last Filed: 07/31/24 19:40> Additional Instructions: Please follow up with the resources provided. Return if you develop thoughts of harming yourself or others. <Daysi Molina MD - Last Filed: 07/31/24 19:40> Patient Language: Italian <Daysi Molina MD - Last Filed: 07/31/24 19:40> Prescriptions: No Action lorazepam [Ativan] 0.5 mg tablet 0.5 mg PO DAILY PRN (Reason: anxiety) Qty: 7 0RF ondansetron 4 mg tablet,disintegrating 4 mg PO Q8H Qty: 14 0RF tamsulosin [Flomax] 0.4 mg capsule 0.4 mg PO HS Qty: 14 0RF ibuprofen 800 mg tablet 800 mg PO TID PRN (Reason: pain) Qty: 20 0RF docusate sodium 100 mg capsule 100 mg PO BID Qty: 30 0RF polyethylene glycol 3350 17 gram/dose powder 17 g PO DAILY Qty: 119 0RF ferrous sulfate [Iron (ferrous sulfate)] 325 mg (65 mg iron) Tablet 325 mg PO DAILY <Daysi Molina MD - Last Filed: 07/31/24 19:40> Follow-up/Referrals: Areli,ROLDAN Marsh [Primary Care Provider] - <Daysi Molina MD - Last Filed: 07/31/24 19:40>
[2024-07-31] MEDS: LORazepam INJ (*CRX) 2 MG/ML VIAL IM (17:48)
[2024-07-31] MEDS: SODIUM CHLORIDE 0.9% IV 1,000 ML 999 ML IV CONT (19:00)
[2024-07-31 19:08] LABS: Basophils Percent Auto 0.2 % (0.2-1.2); Hematocrit 37.9 % (37.0-47.0); Immature Granulocyte Absolute 0.03 K/mm3 (0.00-0.031); Immature Granulocyte Percent A 0.3 % (0-0.5); Lymphocytes Absolute Auto 1.15 K/mm3 (0.9-3.2); Lymphocytes Percent Auto 11.9 % (18.3-44.2); Mean Corpuscular HGB Conc 31.7 g/dl (32-36); Mean Corpuscular Hemoglobin 25.1 pg (26-34); Mean Corpuscular Volume 79.1 fl (80-100); Monocytes Absolute Auto 0.6 K/mm3 (0.1-0.6); Monocytes Percent Auto 6.2 % (2.6-8.5); Neutrophils Absolute Auto 7.9 K/mm3 (1.3-6.7); Neutrophils Percent Auto 81.4 % (45.5-73.1); Platelet Count Result 476 k/mm3 (150-375); Red Blood Count 4.79 M/mm3 (4.2-5.4); White Blood Count 9.7 K/mm3 (4.5-10.0)
[2024-07-31 19:17] LABS: Acetaminophen < 10 ug/mL (10-30); Ethanol < 10 mg/dL (<10); Salicylate < 1.0 mg/dL (2-20)
[2024-07-31 19:18] LABS: Alanine Aminotransferase 13 U/L (6-35); Albumin Level 4.4 g/dL (3.5-5.1); Alkaline Phosphatase 91 U/L (38-126); Anion Gap 5 mmol/L (4-12); Aspartate Amino Transferase 20 U/L (14-36); Bilirubin,Total 0.3 mg/dL (0.2-1.3); Blood Urea Nitrogen 8 mg/dL (7-17); Calcium 9.2 mg/dL (8.4-10.2); Carbon Dioxide 23 mmol/L (22-30); Chloride 106 mmol/L (98-107); Creatine Kinase 71 U/L (30-135); Estimated Glomerular Filt Rate > 60; Glucose 107 mg/dL (65-110); Potassium 3.8 mmol/L (3.4-5.0); Sodium 134 mmol/L (137-145)
[2024-07-31 19:21] LABS: D Dimer < 0.27 ug/mL (<0.48)
[2024-07-31 19:33] VITALS: BP 126/87; PULSE 116; RESP 20; TEMP 36.5; O2SAT 100
[2024-07-31 19:48] LABS: Thyroid Stimulating Hormone 0.743 uIU/mL (0.465-4.680)
[2024-07-31 19:50] LABS: Influenza A QL RT-PCR Negative (Negative); Influenza B QL RT-PCR Negative (Negative); SARS-CoV-2 RNA PCR Negative (Negative)
[2024-07-31 22:15] LABS: BEDSIDEPREGUCG Negative (Negative)
[2024-07-31 22:16] LABS: Add Urine Microscopic? YES; Appearance Urine Clear (Clear); Bacteria Urine None Seen /hpf; Bilirubin Urine Negative (Negative); Blood Urine 2+ (Negative); Color Urine Yellow (Yellow); Glucose Urine UA Negative (Negative); Ketones Urine 3+ mg/dL (Negative); Leukocyte Esterase Ur Negative LEU/UL (Negative); Nitrate Urine Negative (Negative); Non Pathogenic Casts 0-2; Protein Urine Negative (Negative); Squamous Epithelial Cell Urine None Seen /hpf (Few); Urobilinogen Urine 0.2 mg/dL (<2.0); WBC Urine 0-5 /hpf (0-3); pH Urine 5.5 (5.0-9.0)
[2024-07-31 22:34] LABS: Amphetamine Screen Urine Negative (Negative); Barbiturate Screen Urine Negative (Negative); Benzodiazepines Screen Urine Negative (Negative); Cannabinoid Screen Urine Negative (Negative); Cocaine Screen Urine Negative (Negative); Methadone Screen Urine Negative (Negative); Opiate Screen Urine Negative (Negative); Phencyclidine Screen Urine Negative (Negative)
== END 2024-08-01 03:46 | disposition home or self-care (01) ==
PROVIDERS: Emergency Provider Student in an Organized Health Care Education/Training Program; PCP Nurse Practitioner Pediatrics
DX: D75.839 Thrombocytosis, unspecified (principal); F20.9 Schizophrenia, unspecified; F99 Mental disorder, not otherwise specified; Z20.822 Contact with and (suspected) exposure to COVID-19
CPT/HCPCS: 36415; 80053; 80143; 80179; 80307; 81001; 81025; 82077; 82550; 84443; 85025; 85380; 87636; 96360; 96372; 99284; J2060; J7030

== ENCOUNTER 2024-12-06 20:55 | Emergency (ER) | payer OTHER, SELFPAY ==
--- NOTE | ~2024-12-06 | CT_ITS ---
CT of the Abdomen and Pelvis: Indication: Abdominal pain Technique: 2.5 mm axial scans were obtained through the abdomen and pelvis following intravenous adm inistration of 100 cc of Omnipaque 350. Dose reduction technique was used on this scan by utilizing a utomated exposure control and iterative reconstruction technique. The dose-length product (DLP) was 5 87.99 mGy-cm. COMPARISON: 01/23/2024 Findings: Scans through the lung bases are unremarkable. The liver, spleen, pancreas, adrenals and right kidney are within normal limits. Cholecystectomy clip s are present. Probable 2 mm nonobstructing left renal stone. No evidence of aortic aneurysm. No lym phadenopathy. No bowel obstruction or bowel wall thickening. There is no evidence to suggest acute appendicitis. Images through the pelvis were performed. Urinary bladder unremarkable. No pelvic mass seen. No ascit es. Impression: No acute abnormalities seen. 2 mm nonobstructing left renal stone. Reviewed, dictated and finalized at location . Impression: No acute abnormalities seen. 2 mm nonobstructing left renal stone.
--- OUTSIDE RECORDS SUMMARY | 2024-12-06 20:58 | XMS_ITS | Data Portability ---
Author Organization [facility] Address [address] [place] [address] Assessment Encounter Date Assessment Date Assessment LastModified by Organization Details LastModified Time 04/26/2022 04/26/2022 mandeep [email or web address] Not available 04/02 19:56:59 Plan of Treatment Reminders Order Date Submit Date Provider Last Modified By Organization Details Last Modified Time Details Appointments None recorded. Lab glucose tolerance test, gestational panel 2021 [facility] (Lab), [address] , [place], [address], 12:30:48 hematocrit, blood 2021 [facility] (Lab), [address] [place], [address], 12:30:47 hemoglobin (Hb), blood 2021 [facility] (Lab), [address], [place], [address], 12:30:48 unlisted lab - HIV 1/2 antigen/ant ibody, reflex confirmatio n 2021 [facility] (Lab), [address] [place], [address], 12:30:49 drug screen, urine 2021 [facility], [address], [place], [address], 14:57:30 drug screen, urine 2021 [facility], [address], [place], [address], 12:56:39 Referral None recorded. Procedures None recorded. Surgeries None recorded. Imaging US, obstetric, 2nd or 3rd trimester 2021 [address], [address], [place], [address], 16:14:11 US, obstetric, transvagina l 2021 [facility], [address], [place], [address], 12:38:52 Medication Orders famotidine 40 mg tablet [address] [id number], [address], [id number], 16:28:26 ondansetron 8 mg disintegrat ing tablet 2021 [id number], [address], [id number], 13:17:18 Patient TargetsNo targets recorded. Patient InstructionsNo instructions recorded. Reason for Referral None Reported. Results Created Date Observation Date Name Description Value Unit Range Abnormal Flag Note LastModifiedBy Organization Detail LastModifiedTime 01/16/20 22 01/15/2022 CULTU RE: URINE result report SEE RESULT S BELOW Test: Cultu re: Urine Speci men Sourc e: Urine Voide d Speci men Type: Urine Speci men Date: 2021 2:28 PM Resul t Date: 2021 12:50 AM Resul t Statu s: Final resul t Abnor mal: No Resul ting Lab: [facility] [address] [facility] [address] Tel: CULTU RE ----- ----- ----- --- Cultu re resul t (>=3 organ isms prese nt) indic ates possi ble conta minat ion. Repea t cultu re if sympt oms indic ate. Not Available [facility] (Lab) [address] [facility], [place], [address], 01/17/2022 01:53:16 01/16/2001/15/2022 IMAGE GUIDE D PAP AND HPV REGAR DLESS image guided Pap, HPV regardless of Pap result SEE RESULT S BELOW CASE REPOR T: Cytol ogy Gynec ologi stephanie Repor t Case: [id number] Autho alexis lindsay Provi hari: Ángela Mckeon MD Colle cted: 01/15 1433 Order ing Locat ion: [place] Patho logy Recei darline: 01/18 0734 First Scree n: Wilson Ruvalcaba CT Speci men: Gurjit conti Pap - Image d, Cervi x STATE MENT OF ADEQU ACY: Satis facto ry for evalu ation Trans forma tion zone compo nent prese nt FINAL DIAGN OSIS: Negat flakito for Intra epith elial Nakita shook or Margarita foley (NIL) . Elect ramiro contreras abdi d by Wilson Ruvalcaba, CT on 2021 at 8:50 AM ----- ----- ----- ----- ----- ----- ----- ----- ----- ----- ----- ----- ----- ----- ----- ----- ----- ---- HPV RESUL TS: HPV mRNA E6/E7 : No HPV mRNA Detec lili NOTE: This high risk HPV mRNA assay detec ts fourt een high- risk HPV types (16, 18, 31, 33, 35, 39, 45, 51, 52, 56, 58, 59, 66, 68) witho ut diffe renti ation . COMME NT: Note: This speci men was revie wed by a Cytot echno logis t and/o r Patho logis t (as indic ated in this repor t) after evalu ation using the Thinp rep Imagi ng Syste m. CLINI STEPHANIE INFOR MATIO N: Menst rual Statu s: LMP (if appli cable ): Clini stephanie Histo ry/Pr eviou s Pap: Type of Neopl beba (if appli cable ): Signi fican t Clini stephanie Findi ngs: Other Histo ry: Hormo eliezer (if appli cable ): PAP EDUCA LARA L NOTE: The Pap Test is a scree gallito test with an inher ent false negat flakito rate. Liqui d-bas ed sampl ing may decre ase, but will not elimi phil, false negat flakito resul ts. A negat flakito resul t does not precl ude the prese nce and/o r devel opmen t of disea se, since the prese nce of abnor mal cells in the sampl e depen ds on the locat ion of the lesio n and sampl ing techn ique. Berta nued regul ar scree gallito is the best metho d of cance r preve ntion . If repor lili cytol ogic findi ng do not corre late with physi stephanie and/o r histo rical findi ngs, furth er inves tigat ion is recom reina d, as clini nael choi nted. Not Available [facility] (Lab) [address], [place], [address], 01/20/2022 09:53:24 01/16/20 22 01/15/2022 CT/GC (SERAFIN) , THINP REP VIAL chlamydia trachomatis, PCR Negati ve negati ve Not Available [facility] (Lab) [address], [place], [address], 01/20/2022 09:53:25 01/16/20 22 01/15/2022 CT/GC (SERAFIN) , THINP REP VIAL neisseria gonorrhoeae, PCR Negati ve negati ve Not Available [facility] (Lab) [address], [place], [address], 01/20/2022 09:53:25 01/16/20 22 01/15/2022 TRICH OMONA S VAGIN TONYA (RRNA ) trichomonas vaginalis ribosomal RNA (rrna) Negati ve negati ve Not Available [facility] (Lab) [address], [place], [address], 01/20/2022 09:53:25 01/16/20 22 01/15/2022 drug scree n, urine Amphetamines : negati ve Not Available [facility] [address], [place], [address], 01/15/2022 12:56:05 01/16/20 22 01/15/2022 drug scree n, urine Cannabinoids : negati ve Not Available [facility] [address], [place], [address], 01/15/2022 12:56:05 01/16/20 22 01/15/2022 drug scree n, urine Opiates: negati ve Not Available [facility] [address], [place], [address], 01/15/2022 12:56:05 01/16/20 22 01/15/2022 drug scree n, urine Benzodiazepi eliezer: negati ve Not Available [facility] [address], [place], [address], 01/15/2022 12:56:05 01/21/20 22 01/20/2022 CBC W/DIF F WBC 8.3 10'3/ uL 3.6-10 .2 Not Available [facility] (Lab) [address], [place], [address], 01/21/2022 19:25:11 01/21/20 22 01/20/2022 CBC W/DIF F RBC 3.70 10'6/ uL (based on docume nted legal sex) 4.10-5 .30 low Not Available [facility] (Lab) [address], [place], [address], 01/21/2022 19:25:11 01/21/20 22 01/20/2022 CBC W/DIF F HGB 10.4 g/dL (based on docume nted legal sex) 11.9-1 5.8 low Not Available [facility] (Lab) [address], [place], [address], 01/21/2022 19:25:11 01/21/20 22 01/20/2022 CBC W/DIF F HCT 33.1 % (based on docume nted legal sex) 37.4-4 8.3 low Not Available [facility] (Lab) [address], [place], [address], 01/21/2022 19:25:11 01/21/20 22 01/20/2022 CBC W/DIF F MCV 89.0 fL 82.0-9 9.0 Not Available [facility] (Lab) [address], [place], [address], 01/21/2022 19:25:11 01/21/20 22 01/20/2022 CBC W/DIF F MCH 28.0 pg 27.0-3 3.0 Not Available [facility] (Lab) [address] [facility], [place], [address], 01/21/2022 19:25:11 01/21/20 22 01/20/2022 CBC W/DIF F MCHC 31.0 g/dL 32.0-3 6.0 low Not Available [facility] (Lab) [address] [place], [address], 01/21/2022 19:25:11 01/21/20 22 01/20/2022 CBC W/DIF F RDW 15.0 % 11.0-1 5.0 Not Available [facility] (Lab) [address] [facility], [place], [address], 01/21/2022 19:25:11 01/21/20 22 01/20/2022 CBC W/DIF F plt 335 10'3/ uL 150-45 0 Not Available [facility] (Lab) [address] [facility], [place], [address], 01/21/2022 19:25:11 01/21/20 22 01/20/2022 CBC W/DIF F MPV 10.8 fL 9.8-12 .7 Not Available [facility] (Lab) [address] [facility], [place], [address], 01/21/2022 19:25:11 01/21/20 22 01/20/2022 CBC W/DIF F NRBC's 0.00 % 0 Not Available [facility] (Lab) [address] [facility], [place], [address], 01/21/2022 19:25:11 01/21/20 22 01/20/2022 CBC W/DIF F absolute NRBCs 0.0 10'3/ uL 0 Not Available [facility] (Lab) [address] [facility], [place], [address], 01/21/2022 19:25:11 01/21/20 22 01/20/2022 CBC W/DIF F neutrophils 79.0 % 37.0-7 2.0 high Not Available [facility] (Lab) [address] [facility], [place], [address], 01/21/2022 19:25:11 01/21/20 22 01/20/2022 CBC W/DIF F lymphocytes 15.0 % 16.0-4 8.0 low Not Available [facility] (Lab) [address] [place], [address], 01/21/2022 19:25:11 01/21/20 22 01/20/2022 CBC W/DIF F monocytes 6.0 % 4.0-14 .0 Not Available [facility] (Lab) [address] [place], [address], 01/21/2022 19:25:11 01/21/20 22 01/20/2022 CBC W/DIF F eosinophils 0.0 % 0.0-9. 0 Not Available [facility] (Lab) [address], [place], [address], 01/21/2022 19:25:11 01/21/20 22 01/20/2022 CBC W/DIF F basophils 0.0 % 0.0-2. 0 Not Available [facility] (Lab) [address] [facility], [place], [address], 01/21/2022 19:25:11 01/21/20 22 01/20/2022 CBC W/DIF F immature granulocytes 0.0 % no define d refere nce range Not Available [facility] (Lab) [address] [facility], [place], [address], 01/21/2022 19:25:11 01/21/20 22 01/20/2022 CBC W/DIF F absolute neutrophils 6.4 10'3/ uL 1.1-6. 0 high Not Available [facility] (Lab) [address] [facility], [place], [address], 01/21/2022 19:25:11 01/21/20 22 01/20/2022 CBC W/DIF F absolute lymphocytes 1.2 10'3/ uL 0.7-3. 4 Not Available [facility] (Lab) [address] [place], [address], 01/21/2022 19:25:11 01/21/20 22 01/20/2022 CBC W/DIF F absolute monocytes 0.5 10'3/ uL 0.3-1. 0 Not Available [facility] (Lab) [address] [place], [address], 01/21/2022 19:25:11 01/21/20 22 01/20/2022 CBC W/DIF F absolute eosinophils 0.0 10'3/ uL 0.0-0. 6 Not Available [facility] (Lab) [address] [facility], [place], [address], 01/21/2022 19:25:11 01/21/20 22 01/20/2022 CBC W/DIF F absolute basophils 0.0 10'3/ uL 0.0-0. 1 Not Available [facility] (Lab) [address] [facility], [place], [address], 01/21/2022 19:25:11 01/21/20 22 01/20/2022 CBC W/DIF F absolute immature granulocytes 0.00 10'3/ uL 0.00-0 .10 2021 2:20 AM: P indic ates parti al resul ts on a panel have been relea sed. Addit ional resul ts will follo w. 2021 2:20 AM: This resul t has been final verif ied. No addit ional or nettles ed resul ts are expec lili. Not Available [facility] (Lab) [address] [facility], [place], [address], 01/21/2022 19:25:11 01/21/20 22 01/20/2022 TYPE/ RH/SC REEN ABO/Rh type B POS Not Available [facility] (Lab) [address] [facility], [place], [address], 01/21/2022 19:25:12 01/21/20 22 01/20/2022 TYPE/ RH/SC REEN antibody screen NEG Not Available [facility] (Lab) [address] [facility], [place], [address], 01/21/2022 19:25:12 01/21/20 22 01/20/2022 TYPE/ RH/SC REEN exp date 2021 23:59 Not Available [facility] (Lab) [address] [facility], [place], [address], 01/21/2022 19:25:12 01/21/20 22 01/20/2022 HEMOG LOBIN A1C hemoglobin A1C 5.2 % 0-5.6 The Ameri can [employer] benjamin [employer] iatio n recom mends that a prima ry goal of thera py shoul d be a HBA1C of < 7% and that physi cians shoul d reeva luate the treat ment regim en in patie nts with HBA1C value s consi stent ly > 8%. <5.7% Herminia l 5.7 - 6.4% Incre ased risk for diabe benjamin >=6.5 % Diagn ostic of diabe benjamin <7.0% Goal of thera py >8.0% Actio n sugge sted Not Available [facility] (Lab) [address] [facility], [place], [address], 01/21/2022 19:25:12 01/21/20 22 01/20/2022 HEPAT ITIS B SURFA CE ANTIG EN hepatitis B surface antigen Non-re active non-re active This assay was perfo rmed using [employer] reage nts and test kits. Value s obtai fatou with other assay metho ds or kits canno t be used inter nettles eably . Not Available [facility] (Lab) [address] [facility], [place], [address], 01/21/2022 19:25:13 01/21/20 22 01/20/2022 HEPAT ITIS C ANTIB LESLYE SCREE N, REFLE X TO CONFI RMATI ON hepatitis C antibody Non-re active non-re active This assay was perfo rmed using [employer] reage nts and test kits. Value s obtai fatou with other assay metho ds or kits canno t be used inter nettles eably . Not Available [facility] (Lab) [address] [facility], [place], [address], 01/21/2022 19:25:13 01/21/20 22 01/20/2022 TSH, REFLE X FREE T4 TSH 1.01 uIU/m L 0.30-5 .33 Not Available [facility] (Lab) [address] [place], [address], 01/21/2022 19:25:13 01/21/20 22 01/20/2022 RUBEL LA IGG ANTIB LESLYE, QUANT rubella antibodies, IgG Reacti ve reacti ve Not Available [facility] (Lab) [address] [facility], [place], [address], 01/21/2022 19:25:14 01/21/20 22 01/20/2022 RUBEL LA IGG ANTIB LESLYE, QUANT rubella antibodies, IgG quant 24.7 IU/mL >=10 Non-r eacti ve (Non- Immun e) <10 IU/mL React flakito (Immu ne) > or = 10 IU/mL Not Available [facility] (Lab) [address] [place], [address], 01/21/2022 19:25:14 01/21/20 22 01/20/2022 HIV 1/2 ANTIG EN/AN TIBOD Y, REFLE X CONFI RMATI ON HIV Ag-Ab total quant 0.12 idx <1.00 Not Available [facility] (Lab) [address] [place], [address], 01/21/2022 19:25:14 01/21/20 22 01/20/2022 HIV 1/2 ANTIG EN/AN TIBOD Y, REFLE X CONFI RMATI ON HIV Ag-Ab total Non-re active non-re active Not Available [facility] (Lab) [address] [place], [address], 01/21/2022 19:25:14 01/21/20 22 01/20/2022 HIV 1/2 ANTIG EN/AN TIBOD Y, REFLE X CONFI RMATI ON HIV-1 antibody quant 0.11 idx <1.00 Not Available [facility] (Lab) [address] [facility], [place], [address], 01/21/2022 19:25:14 01/21/20 22 01/20/2022 HIV 1/2 ANTIG EN/AN TIBOD Y, REFLE X CONFI RMATI ON HIV-1 antibody Non-re active non-re active Not Available [facility] (Lab) [address] [place], [address], 01/21/2022 19:25:14 01/21/20 22 01/20/2022 HIV 1/2 ANTIG EN/AN TIBOD Y, REFLE X CONFI RMATI ON HIV-1 antigen (P24) quant 0.12 idx <1.00 Not Available [facility] (Lab) [address] [place], [address], 01/21/2022 19:25:14 01/21/20 22 01/20/2022 HIV 1/2 ANTIG EN/AN TIBOD Y, REFLE X CONFI RMATI ON HIV-1 antigen (P24) Non-re active non-re active Not Available [facility] (Lab) [address] [place], [address], 01/21/2022 19:25:14 01/21/20 22 01/20/2022 HIV 1/2 ANTIG EN/AN TIBOD Y, REFLE X CONFI RMATI ON HIV-2 antibody quant 0.11 idx <1.00 Not Available [facility] (Lab) [address] [place], [address], 01/21/2022 19:25:14 01/21/20 22 01/20/2022 HIV 1/2 ANTIG EN/AN TIBOD Y, REFLE X CONFI RMATI ON HIV-2 antibody Non-re active non-re active HIV testi ng is perfo rmed using Multi plex- Bead Immun oassa y techn ology . The final overa ll HIV Ag-Ab resul t is deter mined based on the final resul t for each indiv idual daniel te. If any of the daniel benjamin has 2 or more repli cates that are REACT FLAKITO, the final overa ll HIV Ag-Ab resul t is also React flakito. A Non-R eacti ve test resul t at any point in the inves tigat ion of indiv idual subje cts does not precl ude the possi bilit y of expos ure to or infec tion with HIV-1 and/o r HIV-2 . Non-R eacti ve resul ts can occur if the quant ity of marke r prese nt in the sampl e is below the detec tion limit s of the assay . React flakito speci mens must be inves tigat ed by addit ional , more speci fic suppl ement al tests . Speci men confi rmati on will be perfo rmed by the [employer] us HIV 1/2 Suppl ement al Assay . The perfo rmanc e of this assay has not been estab lishe d for neona benjamin and the assay shoul d not be used in indiv idual s young er than 2 years of age. Not Available [facility] (Lab) [address] [facility], [place], [address], 01/21/2022 19:25:14 01/21/20 22 01/20/2022 RPR SCREE N/REF IVANA TITER /FTA RPR screen Nonrea ctive nonrea ctive Not Available [facility] (Lab) [address] [place], [address], 01/21/2022 19:25:15 04/02/20 22 04/02/2022 HEMAT OCRIT (HCT) HCT 33.1 % (based on docume nted legal sex) 37.4-4 8.3 low Not Available [facility] [address] [place], [address], 04/05/2022 12:30:47 04/02/20 22 04/02/2022 HEMOG LOBIN (HGB) HGB 10.1 g/dL (based on docume nted legal sex) 11.9-1 5.8 low Not Available [facility] [address] [place], [place] [address], [place], [address], 04/05/2022 12:30:48 04/02/20 22 04/02/2022 GTT - GESTA LARASTEPHANIA PERLA N, ACOG OB glucose, 1 hour screen 99 mg/dL 70-139 Not Available [facility] [address] [place] [address], [address], 04/05/2022 12:30:48 04/02/20 22 04/02/2022 HIV 1/2 ANTIG EN/AN TIBOD Y, REFLE X CONFI RMATI ON HIV Ag-Ab total quant 0.11 idx <1.00 Not Available [facility] [address] [place], [place] [address], [place], [address], 04/05/2022 12:30:49 04/02/20 22 04/02/2022 HIV 1/2 ANTIG EN/AN TIBOD Y, REFLE X CONFI RMATI ON HIV Ag-Ab total Non-re active non-re active Not Available [facility] [address] [place] [address], [address], 04/05/2022 12:30:49 04/02/20 22 04/02/2022 HIV 1/2 ANTIG EN/AN TIBOD Y, REFLE X CONFI RMATI ON HIV-1 antibody quant 0.03 idx <1.00 Not Available [facility] [address] [place], [place] [address], [place], [address], 04/05/2022 12:30:49 04/02/20 22 04/02/2022 HIV 1/2 ANTIG EN/AN TIBOD Y, REFLE X CONFI RMATI ON HIV-1 antibody Non-re active non-re active Not Available [facility] [address] [place] [address], [address], 04/05/2022 12:30:49 04/02/20 22 04/02/2022 HIV 1/2 ANTIG EN/AN TIBOD Y, REFLE X CONFI RMATI ON HIV-1 antigen (P24) quant 0.11 idx <1.00 Not Available [facility] [address] [place] [address], [address], 04/05/2022 12:30:49 04/02/20 22 04/02/2022 HIV 1/2 ANTIG EN/AN TIBOD Y, REFLE X CONFI RMATI ON HIV-1 antigen (P24) Non-re active non-re active Not Available [facility] [address] [place] [address], [address], 04/05/2022 12:30:49 04/02/20 22 04/02/2022 HIV 1/2 ANTIG EN/AN TIBOD Y, REFLE X CONFI RMATI ON HIV-2 antibody quant 0.08 idx <1.00 Not Available [facility] [address] [place] [address], [address], 04/05/2022 12:30:49 04/02/20 22 04/02/2022 HIV 1/2 ANTIG EN/AN TIBOD Y, REFLE X CONFI RMATI ON HIV-2 antibody Non-re active non-re active HIV testi ng is perfo rmed using Multi plex- Bead Immun oassa y techn ology . The final overa ll HIV Ag-Ab resul t is deter mined based on the final resul t for each indiv idual daniel te. If any of the daniel benjamin has 2 or more repli cates that are REACT FLAKITO, the final overa ll HIV Ag-Ab resul t is also React flakito. A Non-R eacti ve test resul t at any point in the inves tigat ion of indiv idual subje cts does not precl ude the possi bilit y of expos ure to or infec tion with HIV-1 and/o r HIV-2 . Non-R eacti ve resul ts can occur if the quant ity of marke r prese nt in the sampl e is below the detec tion limit s of the assay . React flakito speci mens must be inves tigat ed by addit ional , more speci fic suppl ement al tests . Speci men confi rmati on will be perfo rmed by the [employer] HIV 1/2 Suppl ement al Assay . The perfo rmanc e of this assay has not been estab lishe d for neona benjamin and the assay shoul d not be used in indiv idual s young er than 2 years of age. Not Available [facility] [address], [place], [address], 04/05/2022 12:30:49 04/02/20 22 04/02/2022 drug scree n, urine Amphetamines : negati ve Not Available [facility] [address], [place], [address], 04/02/2022 14:57:11 04/02/20 22 04/02/2022 drug scree n, urine Cannabinoids : negati ve Not Available [facility] [address], [place], [address], 04/02/2022 14:57:11 04/02/20 22 04/02/2022 drug scree n, urine Opiates: negati ve Not Available [facility] [address], [place], [address], 04/02/2022 14:57:11 04/02/20 22 04/02/2022 drug scree n, urine Benzodiazepi eliezer: negati ve Not Available [facility] [address], [place], [address], 04/02/2022 14:57:11 04/16/20 22 04/16/2022 CULTU RE: GROUP B STREP SCREE N, REFLE X SUSCE PTIBI LITY result report SEE RESULT S BELOW Test: Cultu re: Group B Strep , Refle x Susce ptibi lity ([facility]/ [facility] ) Speci men Sourc e: Vagin a/Rec jay Speci men Type: Vagin al/Re ctal Speci men Date: 2021 3:51 PM Resul t Date: 2021 3:07 PM Resul t Statu s: Final resul t Abnor mal: No Resul ting Lab: [facility] [address] [facility] [address] Tel: CULTU RE ----- ----- ----- --- No Group B strep isola lili at 2 days (tamiko ctive broth enhan cemen t) Not Available [facility] [address] [place], [address], 04/19/2022 16:10:58 01/16/20 22 01/15/2022 US, obste tric, 2nd or 3rd trime ster No observ ation record ed. kyernestock [address], [place], [address], 02/04/2023 13:10:54 01/16/20 22 01/15/2022 US, obste tric, 2nd or 3rd trime ster No observ ation record ed. [email or web address] [address], [place], [address], 02/04/2023 13:11:06 01/16/20 22 01/15/2022 US, obste tric, 2nd or 3rd trime ster No observ ation record ed. [email or web address] [facility] [address], [place], [address], 01/15/2022 13:46:15 01/16/20 22 01/15/2022 US, obste tric, trans vagin al No observ ation record ed. [email or web address] [facility] [address], [place], [address], 01/15/2022 13:46:27 Result Notes None recorded. Problems Name Problem SNOMED Code Status Onset Date Resolution Date Notes Provider Name and Address Organization Details Recorded Time Pregnanc y 95700509 Completed 202106/01/2022 Destiny Rubalcvaa ehl null, [facility] 2 14:46:55 Moderate hypereme sis gravidar 667412999 Active 2021 Destiny Martinezti ehl null, [facility] 2 14:46:51 Moderate hypereme sis gravidar um 213983481 Completed 2021 Destiny Martinezti ehl null, [facility] 2 14:46:51 Past pregnanc y history of prematur e labor 110354041 Active 34w x2, declines progeste darren Destiny Martinezti ehl null, [facility] 2 14:46:51 Late entry into care 537431568 Active 21w. cw LMP dating Destiny Martinezti ehl null, [facility] 2 14:46:51 Family history of trisomy 13 [id number] 104 Active daughter , at 4mo Destinyross Martinezti ehl null, [facility] 2 14:46:51 Past pregnanc y history of prematur e labor [id number] Completed 34w x2, declines progeste darren Destiny Awaisnsti ehl null, [facility] 2 14:46:51 Late entry into care [id number] Completed 21w. cw LMP dating Destiny Martinezti ehl null, [facility] 2 14:46:51 Family history of trisomy 13 [id number] 104 Completed daughter , at 4mo Destinyross Martinezti ehl null, [facility] 2 14:46:51 Insuffic ient care [id number] 09 Active 2021 only 2 visits at 32w [facility] 2 14:46:51 Insuffic ient care [id number] 09 Completed 2021 only 2 visits at 32w [facility] 2 14:46:51 Anemia of pregnanc y [id number] [facility] [place] [facility] 2 14:46:51 Anemia of pregnanc y [id number] Completed [place] [facility] 14:46:51 Problem Notes None recorded. Procedures Surgical History Date Name Laterality Status Provider Name and Address Organization Details Recorded Time 08/01/19 19 Date of Last Pap Smear completed [facility] 01/15/2022 12:23:19 08/01/19 13 cholecystectomy completed [facility] 01/15/2022 12:20:21 08/01/19 12 excision of bunion completed [facility] 01/15/2022 12:20:30 Imaging Results Imaging Date Name Status LastModified by Organization Details LastModified Time 01/15/2022 US, obstetric, 2nd or 3rd trimester completed [email or web address] Annabella [address], [place], [address], 02/04/2023 13:10:54 01/15/2022 US, obstetric, 2nd or 3rd trimester completed [email or web address] Annabella [address], [place], [address], 02/04/2023 13:11:06 01/15/2022 US, obstetric, 2nd or 3rd trimester completed [email or web address] [place] [address], [place], [address], 01/15/2022 13:46:15 01/15/2022 US, obstetric, transvaginal completed [email or web address] [place] [address], [place], [address], 01/15/2022 13:46:27 Procedure Notes None recorded. Medical Equipment None Reported. Allergies Allergen ID Allergen Name Allergen Category Reaction Reaction Severity Criticality Documentation Date Start Date Code Code System Note Provider Name and Address Organization Details Recorded Time shellfish derived food,medi cation Not available Not available Not available 01/15/2022 [id number] LAWANDA Enrique [facility] 12:20:44 Medications Name Sig Start Date Stop Date Status Note LastModified by Organization Details LastModified Time ondansetron HCl 4 mg tablet TAKE 1 TABLET BY MOUTH EVERY 8 HOURS 01/15 completed Not Available Not Available Not Available famotidine 40 mg tablet Take 1 tablet every day by oral route. 2021 active Not Available Not Available Not Avai lable clobetasol 0.05 % topical cream APPLY EXTERNALL Y TO THE AFFECTED AREA ONCE DAILY NEEDED 01/15 completed Not Available Not Available Not Available ondansetron 8 mg disintegrat ing tablet DISSOLVE 1 TABLET ON THE TONGUE EVERY 8 HOURS NEEDED 2021 active Not Available Not Available Not Avai lable clobetasol 0.05 % topical gel APPLY EXTERNALL Y TO THE AFFECTED AREA EVERY DAY NEEDED active Not Available Not Available No t Available famotidine 20 mg tablet 01/15 completed Not Available Not Available Not Available cephalexin 500 mg capsule TAKE 1 CAPSULE BY MOUTH THREE TIMES DAILY 01/15 completed Not Available Not Available Not Available tacrolimus 0.1 % topical ointment APPLY TO TO THE AFFECTED AREA TWICE DAILY 01/15 completed Not Available Not Available Not Available ondansetron 4 mg disintegrat ing tablet DISSOLVE 1 TABLET BY MOUTH EVERY 6-8 HOURS NEEDED 01/15 completed Not Available Not Available Not Available nitrofurant oin monohydrate /macrocryst als 100 mg capsule TAKE 1 CAPSULE BY MOUTH EVERY 12 HOURS. MUST ADMINISTE R WITH A MEAL/FOOD 04/23 completed Not Available Not Available Not Available Vitals Date Recorded Body height Body mass index (BMI) Body weight Systolic blood pressure Diastolic blood pressure Provider Name and Address Organization Details Last Updated DateTime 01/15/2022 165.1 cm 26.5 kg/m2 19231.18 683 g 106 mm[Hg] 71 mm[Hg] [facility] 2 12:31:43 Date Recorded Body height Body mass index (BMI) Body weight Systolic blood pressure Diastolic blood pressure Provider Name and Address Organization Details Last Updated DateTime 04/02/2022 165.1 cm 26.6 kg/m2 38042.77 92 g 104 mm[Hg] 70 mm[Hg] [facility] 2 14:30:43 Date Recorded Body height Body mass index (BMI) Body weight Systolic blood pressure Diastolic blood pressure Provider Name and Address Organization Details Last Updated DateTime 04/16/2022 165.1 cm 27.1 kg/m2 77511.55 631 g 114 mm[Hg] 78 mm[Hg] [facility] 2 14:28:05 Date Recorded Body height Body mass index (BMI) Body weight Systolic blood pressure Diastolic blood pressure Provider Name and Address Organization Details Last Updated DateTime 04/26/2022 165.1 cm 27.3 kg/m2 05918.14 868 g 116 mm[Hg] 75 mm[Hg] [facility] 2 14:55:41 Social History Question Answer Notes LastModified by Organizat ion Details LastModified Time Tobacco Smoking Status Never Smoker Susy Llanos [facility] 04/16/2022 14:25:53 What Is Your Level Of Alcohol Consumption? None Information not available 01/15/2022 If You Are , What Was Your Level Of Alcohol Consumption Prior To ? None [email or web address] Information not available 04/16/2022 Do You Use Any Illicit Or Recreational Drugs? No Information not available 01/15/2022 Has Tobacco Cessation Counseling Been Provided? No [email or web address] Information not available 04/16/2022 Do You Or Have You Ever Used Any Other Forms Of Tobacco Or Nicotine? No [email or web address] Information not available 04/16/2022 Sex: Unknown Functional Status None recorded. Mental Status None recorded. Family History Relationship Description Onset Age of this Age Resolved Age Notes LastModified by Organization Details LastModified Time Mother Hypertensive disorder [email or web address] Not available 2021 12:20:58 Medical History Condition Response Allergies (Food, seasonal, environmental ) N Other N Blood Transfusion N Drug/Latex Allergies/Reactions N Breast Cancer N Dermatologic Disorders N Lung Disease N Defects or Inherited Disease N Breast Problem N Gestational Diabetes N Hematologic disorders N Anesthesia Complications N History of STI N Deep Vein Thrombosis N Polycystic ovary syndrome N Anxiety Disorder N Autoimmune disease N Arthritis N Infertility N Polyps N Acid Reflux (GERD) N History of abnormal pap N Cancer N Stroke N Varicosities N Neurologic/Epilepsy N Endometriosis N High Cholesterol N Headaches N Fibromyalgia N Kidney Disease N Heart Problems N Kidney or Bladder Problems N Thyroid Problems N GI Problems N Eating Disorder N Anemia N Art (IVF or FET) N Psychiatric Illness N Ovarian Cancer N Diabetes N Pulmonary (TB, Asthma) N Hepatitis/Liver Disease N No Past Medical History N Eczema Y Urinary Tract Infection N Abuse/Domestic Violence N Asthma N Trauma/Violence N Depression/ depression N Heart Disease N Pre-Eclampsia N Hypertension N Osteoporosis N Thrombophilias N Gynecological History Statement/Question Response Date of Last Pap Smear 08/01/2018 Current Control Method Date of LMP 08/07/2021 Obstetrics History GPAL:G 4 P 2 2 0 3 Type Value Full Term 2 Premature 2 Living 3 Total 4 Past Encounters Encounter ID Performer Location Encounter Start Date Encounter Closed Date Diagnosis/Indication Diagnosis SNOMED-CT Code Diagnosis ICD10 Code Diagnosis Note [id number] MD Jayla Bell [address] [address] 01/15/2022 11:33:34 01/15/2022 14:08:09 screening 126185340 Z36.3 Z3A.23 [id number] MD Jayla Bell [address],[place] [address] 01/15/2022 11:46:25 01/18/2022 15:25:52 Routine care 191296981 Z34.92 Moderate h yperemesis gravidarum 922484654 O21.0 [id number] Ángela Parrish MD [facility] [address],[place] [address] 04/02/2022 14:24:07 04/06/2022 16:05:33 Insufficient care 0315606768 109 O09.33 Past pregn pepper history of premature labor 341450605 Z87.51 Moderate h yperemesis gravidarum 109915222 O21.0 Gastroesop hageal reflux disease 859745329 K21.9 67802102 Z36.8 9 Routine an tenatal care 080749255 Z34.92 [id number] Ángela Parrish MD [facility] [address],[place] [address] 04/16/2022 14:23:10 04/19/2022 15:35:20 Insufficient care 6876819167 109 O09.33 Routine an tenatal care 077506789 Z34.92 [id number] Ángela Parrish MD [facility] [address],[place] [address] 04/26/2022 14:27:40 04/27/2022 15:32:59 Late entry into care 175114749 O09.33 Moderate h yperemesis gravidarum 432668551 O21.0 Past pregn pepper history of premature labor 257262211 Z87.51 Health Concerns Section Related Observation LastModified by Organization Detai ls LastModified Time None Recorded Concern Status LastModified by Organization Details LastModified Time None Recorded Advance Directives Directive None Recorded Payers Encounter Date Sequence Insurance Name Policy Number Policy Kramer Covered Member ID Kramer Member ID Guarantor Name 01/15/2022 1 [place] [id number] Damir Cornejo [id number] Odette ramírez 01/15/2022 1 [place] [id number] Damir Cornejo [id number] Odette White a 04/02/2022 1 [facility] ON OR AFTER 01/29/21 (MEDICAID REPLACEMENT - HMO) [id number] Odette Aquino [id number] Odette White a 04/16/2022 1 [facility] ON OR AFTER 01/29/21 (MEDICAID REPLACEMENT - HMO) [id number] Odette Aquino [id number] Odette White a 04/26/2022 1 [facility] ON OR AFTER 01/29/21 (MEDICAID REPLACEMENT - HMO) [id number] Odette Aquino [id number] Odette White a OBGyn Episode Ob Episode Information Episode Created Date Number of Fetuses Patient Bloodtype Patient rh Status Prepregnancy Weight lbs Domestic Partner Domestic Partner Phone Father Name Circulation Representative Status 01/16/20 22 1 CLOSED Fetus Data First Name Last Name Admitted to NICU Weight (g) Sex Living Outcome Pediatric Complications Fetus ID Race Codes Race Delivery Type 2438.05 7 M Full Term [id number] Vaginal Delivery Sunil Calculation Initial Sunil Date Initial Exam Date Initial Exam Provider Initial Ultrasound Date Last Menstrual Period Date Ultra Sound Weeks Gestation 0 Eighteen To Twenty Week Sunil Update Ultra Sound Date Fundal Height At Umbil Quickening Date Ultra Sound Latest Weeks Gestation Final Sunil Confirmed By Final Sunil Confirmed Date Final Sunil Date Ultra Sound Latest Days Gestation 0 0 Menstrual History Last Menstrual Date Menses Monthly On Bcp Conception Prior Menses Frequency Hcg Plus Date Menarche Onset Age Delivery Information Delivery Date Delivery Type Labor Anesthesia Weeks Gestation Incision Type Labor Labor Length Hrs Delivered By Post Complications Tubal Sterilization Discharge Date Comments 8 34 Trisomy 13 Discharge Information Feeding Method Contraceptive Method Maternal HG B and HCT Levels Ob Episode Information Episode Created Date Number of Fetuses Patient Bloodtype Patient rh Status Prepregnancy Weight lbs Domestic Partner Domestic Partner Phone Father Name Circulation Representative Status 01/16/20 22 1 B Positive CLOSED Fetus Data First Name Last Name Admitted to NICU Weight (g) Sex Living Outcome Pediatric Complications Fetus ID Race Codes Race Delivery Type Isaac 3430.28 95 M true Full Term [id number] Vaginal Delivery Problems Problem Notes declines COVID vaccinesDunba r pt!! Problem Name Start Date End Date Resolution Snomed Code Not e Past history of premature labor 699111012 36w x2, decline s progesterone Late entry into care 637213367 23w. US cw LMP dating Family history of trisomy 13 [id number] daughter, d at 4mo Moderate hyperemesis gravidarum 01/15/2022 565882549 Insufficient care 04/02/2022 6813433175482 only 2 visits at 34w Anemia of 60232280 Sunil Calculation Initial Sunil Date Initial Exam Date Initial Exam Provider Initial Ultrasound Date Last Menstrual Period Date Ultra Sound Weeks Gestation 05/14/2022 01/15/2022 01/15/2022 08/07/2021 23 Eighteen To Twenty Week Sunil Update Ultra Sound Date Fundal Height At Umbil Quickening Date Ultra Sound Latest Weeks Gestation Final Sunil Confirmed By Final Sunil Confirmed Date Final Sunil Date Ultra Sound Latest Days Gestation 0 05/14/20 22 0 Pre-chelly Flowsheet Flowsheet Date 01/15/2022 Berumen Score Blood Edema Fundus Height Fundus Units Glucose Ketones Leukocytes Nitrite Labor Signs Protein Cervic Dilation Cervic Effacement Cervic Station Type Weight in lbs Pre/Post Dialysis Refused BP Diastolic BP Location Tested BP Systolic BP Type Fetus Heart Rate Present Fetus Movement Comments Flowsheet Date 01/15/2022 Berumen Score Blood Edema Fundus Height Fundus Units Glucose Ketones Leukocytes Nitrite Labor Signs Protein Cervic Dilation Cervic Effacement Cervic Station neg none 22 Type Weight in lbs Pre/Post Dialysis Refused Weight 159.019616908114 BP Diastolic BP Location Tested BP Systolic BP Type 71 106 Fetus Heart Rate Present A 140 Fetus Movement A Yes Comments Odette is a 31yo who presents for late care, had insurance issues. Us today normal anatomy except heart not seen well. She has a history of x3, 2 at 36w , one a baby with Trisomy 13 who at 4mo. She declines progesterone. She has hyperemesis and is taking zofran from ED, needs refills. She has not had COVID vaccines and declines due to 's cultural reasons. We discussed risks of COVID in . FU 4 weeks for US and GCT. PNL today. Declines NIPt. Flowsheet Date 04/02/2022 Berumen Score Blood Edema Fundus Height Fundus Units Glucose Ketones Leukocytes Nitrite Labor Signs Protein Cervic Dilation Cervic Effacement Cervic Station neg trace 35 none trace Type Weight in lbs Pre/Post Dialysis Refused Weight 160.079770135109 BP Diastolic BP Location Tested BP Systolic BP Type 70 104 Fetus Heart Rate Present A 150 Fetus Movement A Yes Comments No visit in 11w. Pt has mult iple excuses including insurance, not feeling well, was told not to come back until 32w, kids were too busy, didn't have a car, knew everything was fine. UDS for no care. Declines FU US. Declines Tdap. Hyperemesis finally better now. Requests pepcid script. Never did GCT- will stay and do it today. Denies PTL sx or UTI sx. Discussed importance of remained of visits, especially with her history of delivery. FU 2 weeks. Precautions given. Flowsheet Date 04/16/2022 Berumen Score Blood Edema Fundus Height Fundus Units Glucose Ketones Leukocytes Nitrite Labor Signs Protein Cervic Dilation Cervic Effacement Cervic Station neg none 36 2cm 50% -3 Type Weight in lbs Pre/Post Dialysis Refused Weight 163.103957188244 BP Diastolic BP Location Tested BP Systolic BP Type 78 114 Fetus Heart Rate Present A 150 Fetus Movement A Yes Comments Doing fine. Passed GCT. Taki ng iron for anemia. GBS done and discussed. Labor precautions. Follow up weekly. Flowsheet Date 04/26/2022 Berumen Score Blood Edema Fundus Height Fundus Units Glucose Ketones Leukocytes Nitrite Labor Signs Protein Cervic Dilation Cervic Effacement Cervic Station neg trace 33 none trace 3cm 50% -3 Type Weight in lbs Pre/Post Dialysis Refused Weight 164.69238463500 BP Diastolic BP Location Tested BP Systolic BP Type 75 116 Fetus Heart Rate Present A 140 Fetus Movement A Yes Comments Doing better than last night - had IVF again. Gbs neg. Irregular ctx. Would like 39w IOL. Precautions given. Menstrual History Last Menstrual Date Menses Monthly On Bcp Conception Prior Menses Frequency Hcg Plus Date Menarche Onset Age 0108/07/2021 Genetic Screening And Infection History Question Response Note Mental Retardation/Autism false Patient's Age Will Be 35 Yea rs Or Older At Estimated Date of Delivery false Thalassemia (Latvian, Ukrainian, Mediterranean, Or Background): MCV < 80 false Neural Tube Defect (Meningom yelocele, Spina Bifida, Or Anencephaly) false Congenital Heart Defect false Down Syndrome false Chuckie-Sachs (eg, Jehovah'S Witness, Cajun, Botswanan-Syrian) f alse Arti Disease false Sickle Cell Disease Or Trait () false Hemophilia Or Other Blood Disorders false Muscular Dystrophy false Cystic Fibrosis false Jagdeep's Chorea false Intellectual Disability/Autism false If Yes, Was Person Tested For Fragile X? false Other Inherited Genetic Or Chromosomal Disorder false had daughter with Trisomy 13 Maternal Metabolic Disorder (eg, Type 1 Diabetes, PKU) false Patient Or Baby's Father Had A Child With Defects Not Listed Above false Recurrent Loss, Or A Stillbirth false Medications (including Suppl ements, Vitamins, Herbs, OTC Drugs), Illicit/Recreational Drugs, Alcohol true If Yes, Agent(s) And Strength/Dosage false Any Other Genetic History false Live With Someone With TB Or Exposed To TB false Patient Or Partner Has Histo ry Of Genital Herpes false Rash Or Viral Illness Since Last Menstrual Period false History Of STD, Gonorrhea, C hlamydia, HPV, Syphilis false Other Infection History false History of HIV false History of Hepatitis false Prior GBS-infected child false Hemoglobinopathy Or Carrier false Other Structural Defect false Recent Travel History Outside of Country false Delivery Information Delivery Date Delivery Type Labor Anesthesia Weeks Gestation Incision Type Labor Labor Length Hrs Delivered By Post Complications Tubal Sterilization Discharge Date Comments 2 Induce d None 39 false Ángela Parrish MD Insuffici ent care, late entry, registered medical transcriptionist Discharge Information Feeding Method Contraceptive Method Maternal HG B and HCT Levels Ob Episode Information Episode Created Date Number of Fetuses Patient Bloodtype Patient rh Status Prepregnancy Weight lbs Domestic Partner Domestic Partner Phone Father Name Circulation Representative Status 01/16/20 22 1 CLOSED Fetus Data First Name Last Name Admitted to NICU Weight (g) Sex Living Outcome Pediatric Complications Fetus ID Race Codes Race Delivery Type 2438.05 7 M Full Term 73073 Vaginal Delivery Sunil Calculation Initial Sunil Date Initial Exam Date Initial Exam Provider Initial Ultrasound Date Last Menstrual Period Date Ultra Sound Weeks Gestation 0 Eighteen To Twenty Week Sunil Update Ultra Sound Date Fundal Height At Umbil Quickening Date Ultra Sound Latest Weeks Gestation Final Sunil Confirmed By Final Sunil Confirmed Date Final Sunil Date Ultra Sound Latest Days Gestation 0 0 Menstrual History Last Menstrual Date Menses Monthly On Bcp Conception Prior Menses Frequency Hcg Plus Date Menarche Onset Age Delivery Information Delivery Date Delivery Type Labor Anesthesia Weeks Gestation Incision Type Labor Labor Length Hrs Delivered By Post Complications Tubal Sterilization Discharge Date Comments 9 36 Discharge Information Feeding Method Contraceptive Method Maternal HG B and HCT Levels Ob Episode Information Episode Created Date Number of Fetuses Patient Bloodtype Patient rh Status Prepregnancy Weight lbs Domestic Partner Domestic Partner Phone Father Name Circulation Representative Status 01/16/20 22 1 CLOSED Fetus Data First Name Last Name Admitted to NICU Weight (g) Sex Living Outcome Pediatric Complications Fetus ID Race Codes Race Delivery Type 3231.84 3 M Full Term 10404 Vaginal Delivery Sunil Calculation Initial Sunil Date Initial Exam Date Initial Exam Provider Initial Ultrasound Date Last Menstrual Period Date Ultra Sound Weeks Gestation 0 Eighteen To Twenty Week Sunil Update Ultra Sound Date Fundal Height At Umbil Quickening Date Ultra Sound Latest Weeks Gestation Final Sunil Confirmed By Final Sunil Confirmed Date Final Sunil Date Ultra Sound Latest Days Gestation 0 0 Menstrual History Last Menstrual Date Menses Monthly On Bcp Conception Prior Menses Frequency Hcg Plus Date Menarche Onset Age Delivery Information Delivery Date Delivery Type Labor Anesthesia Weeks Gestation Incision Type Labor Labor Length Hrs Delivered By Post Complications Tubal Sterilization Discharge Date Comments 2 37 Discharge Information Feeding Method Contraceptive Method Maternal HG B and HCT Levels
--- OUTSIDE RECORDS SUMMARY | 2024-12-06 20:58 | XMS_ITS ---
Author Organization [facility] Address [address] [place] [address] Care Team Providers Care Patient Registration Representative Name Role Phone Tawanda Jordan Primary Care Provider Dione Murphy Unavailable [phone] REASON FOR VISIT Discharge from [facility] ok per Dr murphy Medications Medication SIG (Take, Route, Frequency, Duration) Notes Start Date End Date Status Benztropine Mesylate 1 MG TAKE 1 TABLET BY MOUTH TWICE DAILY Oral for 30 Days Active Haloperidol 5 MG TAKE 1 TABLET BY DUDLEY TH TWICE DAILY Oral for 30 Days Active traZODone HCl 50 MG Oral for 30 Days Active traZODone HCl 50 MG TAKE 1 TABLET BY DUDLEY TH AT BEDTIME NEEDED FOR SLEEP Oral for 30 Days Active Haloperidol 5 MG 1 tablet Oral twice a day for 30 days Active Benztropine Mesylate 1 MG 1 tablet Oral twice a day for 30 days Active Clobetasol Propionate 0.05 % External for 30 Days Active Social History Sex Assigned At : Social History Observation Description Sex Assigned At Female Encounters Encounter Location Date Provider Diagnosis [address] [place] [address] 11/20/2024 Dione Murphy Plan Of Treatment No Information Progress Notes * Surendra AQUINODOB:[birth year] (33 yo F)Acc No.[id number]:11/20/2024 UNLOCKED PROGRESS NOTE Patient: Sebas Surendra SANCHEZ Provider: Lala Murphy :1990 A ge:33 Y S ex:Female Date:11/20/2024 Address:[address] [place], [place] [id number] Pcp:Tawanda Jordan Subjective: * Chief Complaints: * 1 . Discharge from [facility] ok per Dr murphy. * Medical History: * Medications: T aking traZODone HCl 50 MG Tablet Oral , Taking traZODone HCl 50 MG Tablet TAKE 1 TABLET BY MOUTH AT BEDTIME NEEDED FOR SLEEP Oral , Taking Benztropine Mesylate 1 MG Tablet TAKE 1 TABLET BY MOUTH TWICE DAILY Oral , Taking Haloperidol 5 MG Tablet TAKE 1 TABLET BY MOUTH TWICE DAILY Oral , Taking Clobetasol Propionate 0.05 % Gel External , Taking Benztropine Mesylate 1 MG Tablet 1 tablet Oral twice a day , Taking Haloperidol 5 MG Tablet 1 tablet Oral twice a day Objective: * Vitals: Assessment: Plan: * Treatment: * * Electronic signature of Dione Murphy MD, [id number] on 12/06/2024 at 08:58 PM CDT Sign off status: Pending * Provider: Lala Murphy Date: 0 11/20/2024 Generated for Zoya stubbs/Luda/Sukhdeep on: 12/06/2024 08:58 PM CDT
--- OUTSIDE RECORDS SUMMARY | 2024-12-06 20:58 | XMS_ITS | Continuity of Care Document ---
Author Organization [facility] Address [address] [place] [address] [place] [address] Phone Care Team Providers Care Bindery Production Manager Name Role Phone Jamil Brown MD Unavailable Unavailable Allergies, Adverse Reactions, Alerts Substance Reaction Status Criticality HALOPERIDOL LACTATE Active No Infor mation haloperidol Active No Information shellfish derived Active No Informa tion Medications Medication Instructions Dosage Effective Dates (start - stop) Status Comments No Drug Therapy Prescribed Procedures Procedure Date PREV VISIT, EST, AGE 18-39 OFFICE/OUTPATIENT VISIT, EST OFFICE/OUTPATIENT VISIT, EST PREV VISIT, EST, AGE 18-39 OFFICE/OUTPATIENT VISIT, EST OFFICE/OUTPATIENT VISIT, EST OFFICE/OUTPATIENT VISIT, EST PREV VISIT, EST, AGE 18-39 OFFICE/OUTPATIENT VISIT, EST OFFICE/OUTPATIENT VISIT, EST OFFICE/OUTPATIENT VISIT, EST PREV VISIT, NEW, AGE 18-39 Advance Directives Directive Yes / No Effective Date File Name No Information Encounters Encounter Description Practice Location Reason(s) For Visit Diagnoses Date Provider Providers Copied on Encounter [facility], [address] [place], [address], tel:[phone] [facility] No Information 0 8 Kevin Negron. [address], [address] , [place]. tel:[phone] PREV VISIT, EST, AGE 18-39 [facility], [address] [place], [address], [place] tel:[phone] [facility] Medicine Physical (chief complaint) Encntr for general adult medical exam w/o abnormal findings 8 Kevin Negron. [address], [place], [place], [address] , [place]. tel:[phone] Referring Provider: Aramis Rivero [address], [place], [place], [address]. tel:[phone] OFFICE/OUTPA TIENT VISIT, [facility], [address], [place], [place], [address], [place] tel:[phone] [facility] anemia1 (chief complaint)stormy l fungus (chief complaint)jen ght loss1 (chief complaint) AnemiaDermatophy tosis of nailAbnormal weight loss 6 Kevin Negron. [address], [place], [place], [address] , [place]. tel:[phone] Referring Provider: Aramis Rivero [address], [place], [place], [address]. tel:[phone] OFFICE/OUTPA TIENT VISIT, [facility], [address], [place], [place], [address], [place] tel:[phone] [facility] anemia1 (chief complaint)vit tucker D1 (chief complaint)jen ght loss1 (chief complaint)stormy l fungus (chief complaint) AnemiaVitamin D deficiency, unspecifiedDerma tophytosis of nailAbnormal weight loss 6 Kevin Negron. [address], [place], [place], [address] , [place]. tel:[phone] Referring Provider: [address], [place], [place], [address]. tel:[phone] PREV VISIT, EST, AGE 18-39 [facility], [address], [place], [place], [address], [place] tel:[phone] [facility] Medicine Physical (chief complaint) Encntr for general adult medical exam w/o abnormal findings 6 Kevin Negron. [address], [place], [place], [address] , [place]. tel:[phone] Referring Provider: Aramis Rivero [address], [place], [place], [address]. tel:[phone] OFFICE/OUTPA TIENT VISIT, [facility], [address], [place], [place], [address], [place] tel:[phone] [facility] amenorreha (chief complaint)ecz ofelia (chief complaint)blo ating (chief complaint) Absence of menstruationCont act dermatitis and other eczema, unspecified causeAbdominal PainDietary surveillance and counseling 4 Kevin Negron. [address], [place], [place], [address] , [place]. [phone] Referring Provider: Aramis Rivero [address], [place], [place], [address]. tel:[phone] OFFICE/OUTPA TIENT VISIT, [facility], [address], [place], [place], [address], [place] tel:[phone] [facility] bipolar (chief complaint) Bipolar disorder, unspecifiedOther specified paranoid states 4 Kevin Negron. [address], [place], [place], [address] , [place]. [phone] Referring Provider: Aramis Rivero [address], [place], [place], [address]. tel:[phone] OFFICE/OUTPA TIENT VISIT, [facility], [address], [place], [place], [address], [place] tel:[phone] [facility] constipation (chief complaint) Constipation, unspecified 4 Kevin Negron. [address], [place], [place], [address] , [place]. tel:[phone] Referring Provider: Aramis Rivero [address], [place], [place], [address]. tel:[phone] PREV VISIT, EST, AGE 18-39 [facility], [address], [place], [place], [address], [place] tel:[phone] [facility] Medicine Physical (chief complaint) Dietary surveillance and counselingRoutin e Medical ExamRoutine Medical Exam 4 Kevin Negron. [address], [place], [place], [address] , [place]. tel:[phone] Referring Provider: [address], [place], [place], [address]. tel:[phone] OFFICE/OUTPA TIENT VISIT, [facility], [address], [place], [place], [address], [place] tel:[phone] [facility] foot pain (chief complaint)ane marcia (chief complaint) Dietary surveillance and counselingPain in joint involving lower legOther specified anemias 3 Kevin Negron. [address], [place], [place], [address] , [place]. tel:[phone] Referring Provider: [address], [place], [place], [address]. tel:[phone] OFFICE/OUTPA TIENT VISIT, [facility], [address], [place], [place], [address], [place] tel:[phone] [facility] anemia (chief complaint)ty norrhea (chief complaint)con stipation (chief complaint) AnemiaAbsence of menstruationCons tipation, unspecified 3 Kevin Negron. [address], [place], [place], [address] , [place]. tel:[phone] Referring Provider: Aramis Rivero [address], [place], [place], [address]. tel:[phone] OFFICE/OUTPA TIENT VISIT, [facility], [address], [place], [place], [address], [place] tel:[phone] [facility] dizzy (chief complaint)ecz ofelia (chief complaint) Dietary surveillance and counselingDizzin essContact dermatitis and other eczema, unspecified causeUnspecified vitamin d deficiency 3 Kevin Negron. [address], [place], [place], [address] , . [phone] Referring Provider: Jamil Brown [address], [place], [place], [address]. tel:[phone] PREV VISIT, NEW, AGE 18-39 [facility], [address], [place], [place], [address], [place] tel:[phone] [facility] physical (chief complaint) Dietary surveillance and counselingRoutin e Medical ExamRoutine Medical Exam 2 Kevin Negron. [address], [place], [place], [address] , [place]. [phone] Referring Provider: Jamil Brown [address] [place] [address] [address], [place], [place], [address]. tel:[phone] Family History Family Member Type Diagnosis Age At Onset Father Problem (finding) Alive and well Mother Problem (finding) Hypertension Mother Problem (finding) Anxiety Mother Problem (finding) Coronary artery disease 37 Payers Payer name Insurance type Covered green party ID Authoriza tion(s) No Information Social History Type Description Quantity Date Captured Comments Sex Female Smoking Status No Information Chief Complaint And Reason For Visit No Information Plan Of Treatment Date Type Action Status Goal PAP. Due on due Goal Tdap. Due on due Goal Depression screening. Due on due Goal Td vaccine. Due on 18 due Goal PAP. Due on due Goal Td vaccine. Due on 16 due Goal Depression screening. Due on due Goal Tdap. Due on due Goal PAP. Due on due Goal Depression screening. Due on due Goal Tdap. Due on due Goal Td vaccine. Due on 16 due Goal Depression screening. Due on due Goal PAP. Due on due Goal Td vaccine. Due on 16 due Goal Tdap. Due on due Referral Ordered: Ernesto Larsen (related to Anemia) ordered Referral Referred To: Ernesto Larsen [address]
[facility] [address] [place], [phone] Ordered: Referrals: Ernesto Larsen. Evaluate and treat ordered Referral Ordered: Cardiology (related to Encntr for general adult medical exam w/o abnormal findings) ordered Referral Ordered: Referrals: Cardiology. Evaluate and treat ordered Referral Ordered: US EXAM, ABDOM, COMPLETE ordered Referral Ordered: COLONOSCOPY AND BIOPSY ordered Referral Ordered: FOOT XRAY, TWO VIEW Left ordered Referral Ordered: NUC MED HIDA (HEPATOBILIARY) SCAN ordered History Of Present Illness Encounter Date Complaint History Of Prese nt Illness Physical Pt needs annual physical. Pt has history of schizophrenia. Pt used to hear voices. Pt was taking risperdal by her psychiatrist until 6 months ago when she became . Pt moved to [place] and she did not have a psychiatrist while in [place] and she just moved back to local area and she supposes to get SSI check but she was told that she need somebody else to manage her money due to history of schizophrenia. Pt has not been taking risperdal for several months. Pt denies hearing any voices, any suicidal or homicidasl thought, jenny depressive mood. Pt went back to her psychiatrist who told her she is considered a new patient and wont see her for now. Pt staets that she is doing fine without meds. Pt states that she does not trust anybody else to handle her money. Her family is in [place] and her comes in and out of contntry all the time. Pt states that she only has $20 on her bank account and desperately needs the fund from [employer] anemia1 Pt had mild anem ia recenty. Pt went to see GI and had stool guaiac and lab which showed no anemia. Pt did not do the endoscopy. pt denies any blood loss. Pt denies any fatigue or dizziness nail fungus Pt has toenail f ungus. Pt never took lamisil. Pt is afriad of liver functionn side effect from lamisil. weight loss1 Pt has lost 40 p ounds due to diet and exercise. Pt denies any GI issue. anemia1 Pt is mildly ane romario. Pt denies any blood loss. Pt states that she has reather heavy period for 4 days every month. Pt denies any GI complaint or any blood loss. vitamin D1 Pt has low vitam in D. Pt denies any hisotry of fx weight loss1 Pt has lost some weight during last several years. Pt denies any GI complaints. Pt denies any appetite loss nail fungus Pt has toenail f ungus. Pt had normal LFT. Physical Pt needs annual physical. Pt has mild bipolar and schizophrenia and she sees psychiatrist and she is not taking anythign now and doing ok. Pt denies any hearing voices. Pt denies any suicidal or homicdial thought. pt denies any crying spells. Pt no longer has abd pain. Pt has regular period now. Pt c/o toenail thickening and black color for 6 months. Pt notices mild pain aroudn toenail . Pt denies any other complaints Medications Administered Medication Instructions Dosage Effective Dates (start - stop) Status Comments No Drug Therapy Prescribed Instructions Date Instruction Additional Infor mation Prescribed Diet Educ ation/Lifestyle Education Regarding Diet Related to Dietary Surveillance and Counseling Perform monthly self breast examinations. Related to Encntr for general adult medical exam w/o abnormal findings Increase activity. Related to En cntr for general adult medical exam w/o abnormal findings Prescribed Activity and Exercise Education Related to Dietary Surveillance and Counseling Decrease caloric intake Related to Dietary surveillance counseling Dietary counseling Related to Di etary surveillance counseling Decrease caloric intake Related to Dietary surveillance counseling Dietary counseling Related to Di etary surveillance counseling Decrease caloric intake Related to Dietary surveillance counseling Dietary counseling Related to Di etary surveillance counseling Dietary counseling Related to Ov erweight Decrease caloric intake Related to Overweight Decrease caloric intake Related to Dietary surveillance counseling Dietary counseling Related to Di etary surveillance counseling Perform monthly self breast examinations. Related to Routine Medical Exam Increase activity. Related to Ro utine Medical Exam Dietary counseling Related to Di etary surveillance counseling Decrease caloric intake Related to Dietary surveillance counseling Assessments Type Assessment Date No Information
--- OUTSIDE RECORDS SUMMARY | 2024-12-06 20:58 | XMS_ITS | Patient Health Record ---
Author Organization [facility] Address [address] [place] [address] Care Team Providers Care Consumer Credit Counselor Name Role Phone Tawanda Jordan Primary Care Provider HabDione feng Unavailable [phone] Allergies Allergen (clinical drug ingredient) Drug/Non Drug Allergy documented on EMR Reaction Allergy Type Onset Date Status Seafood seafood (uncoded) Unknown Allergy Ac tive Reason For Referral No Information Medications Medication SIG (Take, Route, Frequency, Duration) Notes Start Date End Date Status Clobetasol Propionate 0.05 % External for 30 Days Ac tive traZODone HCl 50 MG Oral for 30 Days Not-Taking Haloperidol Decanoate 100 MG/ML 1 mL Intramuscular every month for 30 days Next dose due on 12/13/24 11/27/2024 Active Benztropine Mesylate 1 MG 1 tablet Oral twice a day for 30 days Not-Taking Haloperidol 5 MG 1 tablet Oral twice a day for 30 days Not-Taking Haloperidol 5 MG TAKE 1 TABLET BY MOUTH TWICE DAILY Oral twice a day for 30 days Active Benztropine Mesylate 1 MG TAKE 1 TABLET BY MOUTH TWICE DAILY Oral twice a day for 30 days Active traZODone HCl 50 MG 1 tablet at bedtime as needed Oral daily for 30 days Active Social History Tobacco Use: Social History Observation Description Date Details (start date - stop date) Never Smoker NA - NA Sex Assigned At : Social History Observation Description Sex Assigned At Female Tobacco Control (Standard) Question Answer Notes Tobacco use: Nonsmoker Problems Problem Type SNOMED Code ICD Code Onset Dates Problem Status W/U Status Risk Notes Problem Schizophrenia (84224062) Schizophrenia (F20.9) Active confirmed Problem Psychosis (48077624) Psychosis (F29) Active confirmed Vital Signs Heart Rate 79 /min 08/14/2024 Respiratory Rate 16 /min 08/14/2024 Blood pressure diastolic 82 mm Hg 08/14/2024 Oximetry 98 % 08/14/2024 Height 65 in in 11/27/2024 Blood pressure systolic 122 mm Hg 08/14/2024 Weight 187.6 lbs 08/14/2024 BMI 31.21 kg/m2 08/14/2024 Encounters Encounter Location Date Provider Diagnosis [address] [address] 08/14/2024 Arif Habib Nutritional counseli ng Z71.3 and Psychosis F29 [address] [address] 11/27/2024 Arif Habib Psychosis F29 and Schizophrenia F20.[address] [address] 11/20/2024 Arif Habib Assessments Encounter Date Diagnosis (ICD Code) Assessment Notes Treatment Notes Treatment Clinical Notes Section Notes 08/14/2024 Psychosis (ICD-10 - F29) 08/14/2024 Nutritional counseling (ICD-10 - Z71.3) side effects discussed . Supportive treatment provided.Berta nue Haldol & Cogenetin. She is is not taking Trazodone. 11/27/2024 Psychosis (ICD-10 - F29) Continue discharge medications. Next Haldol dec injection is due on 12/13/24. Side effects discussed. 11/27/2024 Schizophrenia (ICD-10 - F20.9) Plan Of Treatment No Information Insurance Providers Payer Name Payer Address Payer Phone Subscriber Number Group Number Insured Name Patient Relationship to Insured Coverage Start Date Coverage End Date [place]ID [address] [place] [phone] [id number] Surendra Aquino Self - patient is the insured Medical (General) History Surgical History Surgery Date(Month/Year) cholecystectomy Hospitalization History Reason Date(Month/Year)
[2024-12-06 20:59] VITALS: BP 141/98; PULSE 66; RESP 20; TEMP 36.6; O2SAT 100
--- OUTSIDE RECORDS SUMMARY | 2024-12-06 22:06 | XMS_ITS | Continuity of Care Document ---
Author Organization [facility] Address [address] [address] [place] [address] Phone Care Team Providers Care Solar Fabrication Technician Name Role Phone Jamil Brown MD Unavailable [...] Diagnoses Date Provider Providers Copied on Encounter [facility], [address] [place], [place], [address], tel:[phone] [facility] No Information 0 8 Kevin Negron. [address], [address] , [place]. tel:[phone] PREV VISIT, EST, AGE 18-39 [facility], [address], [place], [address], [place] tel:[phone] [facility] Physical (chief complaint) Encntr for general adult medical exam w/o abnormal findings 8 Kevin Negron. [address], [place], [place], [address] , [place]. tel:[phone] Referring Provider: Aramis Rivero [address], [place], [place], [address]. tel:[phone] OFFICE/OUTPA TIENT VISIT, [facility], [address], [place], [place], [address], [place] tel:[phone] [facility] anemia1 (chief complaint)stormy l fungus (chief complaint)jen ght loss1 (chief complaint) AnemiaDermatophy tosis of nailAbnormal weight loss 6 Kevin Negron. [address], [address], [place], [place], [address] , [place]. tel:[phone] Referring Provider: Aramis Rivero [address], [place], [place], [address]. tel:[phone] OFFICE/OUTPA TIENT VISIT, [facility], [address], [place], [place], [address], [place] tel:[phone] [facility] anemia1 (chief complaint)vit tucker D1 (chief complaint)jen ght loss1 (chief complaint)stormy l fungus (chief complaint) AnemiaVitamin D deficiency, unspecifiedDerma tophytosis of nailAbnormal weight loss 6 Kevin Negron. [address], [address], [place], [place], [address] , [place]. tel:[phone] Referring Provider: Aramis Rivero [address], [place], [place], [address]. tel:[phone] PREV VISIT, EST, AGE 18-39 [facility], [address], [place], [place], [address], [place] tel:[phone] [facility] Physical (chief complaint) Encntr for general adult medical exam w/o abnormal findings 6 Kevin Negron. [address], [address], [place], [place], [address] , [place]. tel:[phone] Referring Provider: Aramis Rivero [address], [place], [place], [address]. tel:[phone] OFFICE/OUTPA TIENT VISIT, [facility], [address], [place], [place], [address], [place] tel:[phone] [facility] amenorreha (chief complaint)ecz ofelia (chief complaint)blo ating (chief complaint) Absence of menstruationCont act dermatitis and other eczema, unspecified causeAbdominal PainDietary surveillance and counseling 4 Kevin Negron. [address], [address], [place], [place], [address] , [place]. [phone] Referring Provider: Aramis Rivero [address], [place], [place], [address]. tel:[phone] OFFICE/OUTPA TIENT VISIT, [facility], [address], [place], [place], [address], [place] tel:[phone] [facility] bipolar (chief complaint) Bipolar disorder, unspecifiedOther specified paranoid states 4 Kevin Negron. [address], [address], [place], [place], [address] , [place]. [phone] Referring Provider: Aramis Rivero [address], [place], [place], [address]. tel:[phone] OFFICE/OUTPA TIENT VISIT, [facility], [address], [place], [place], [address], [place] tel:[phone] [facility] constipation (chief complaint) Constipation, unspecified 4 Kevin Negron. [address], [address], [place], [place], [address] , [place]. tel:[phone] Referring Provider: Aramis Rivero [address], [place], [place], [address]. tel:[phone] PREV VISIT, EST, AGE 18-39 [facility], [address], [place], [place], [address], [place] tel:[phone] [facility] Physical (chief complaint) Dietary surveillance and counselingRoutin e Medical ExamRoutine Medical Exam 4 Kevin Negron. [address], [place], [place], [address] , [place]. tel:[phone] Referring Provider: Aramis Rivero [address], [place], [place], [address]. tel:[phone] OFFICE/OUTPA TIENT VISIT, [facility], [address], [place], [place], [address], [place] tel:[phone] [facility] foot pain (chief complaint)ane marcia (chief complaint) Dietary surveillance and counselingPain in joint involving lower legOther specified anemias 3 Kevin Negron. [address], [address], [place], [place], [address] , [place]. tel:[phone] Referring Provider: Aramis Rivero [address], [place], [place], [address]. tel:[phone] OFFICE/OUTPA TIENT VISIT, [facility], [address], [place], [place], [address], [place] tel:[phone] [facility] anemia (chief complaint)ty norrhea (chief complaint)con stipation (chief complaint) AnemiaAbsence of menstruationCons tipation, unspecified 3 Kevin Negron. [address], [address], [place], [place], [address] , [place]. tel:[phone] Referring Provider: Aramis Rivero [address], [place], [place], [address]. tel:[phone] OFFICE/OUTPA TIENT VISIT, [facility], [address], [place], [place], [address], [place] tel:[phone] [facility] dizzy (chief complaint)ecz ofelia (chief complaint) Dietary surveillance and counselingDizzin essContact dermatitis and other eczema, unspecified causeUnspecified vitamin d deficiency 3 Kevin Negron. [address], [place], [place], [address] , . [phone] Referring Provider: Jamil Brown [address], [place], [place], [address]. tel:[phone] PREV VISIT, NEW, AGE 18-39 [facility], [address], [place], [place], [address], [place] tel:[phone] [facility] physical (chief complaint) Dietary surveillance and counselingRoutin e Medical ExamRoutine Medical Exam 2 Kevin Negron. [address], [place], [place], [address] , [place]. [phone] Referring Provider: Jamil Brown [address] [place] [address] [address], [place], [place], [address]. tel:[phone] Family History Family Member Type Diagnosis Age [...] ordered Referral Referred To: Ernesto Larsen [address]
[facility] [address] [place], [phone] Ordered: Referrals: Ernesto Larsen. Evaluate and treat [...] when she became . Pt moved to [place] and she did not have a psychiatrist while in [place] and she just moved back to local [...] handle her money. Her family is in [place] and her comes in and out of contntry all the time. Pt states that she only has $20 on her bank account and desperately needs the fund from [employer] anemia1 Pt had mild anem ia recenty. [...] Instructions Date Instruction Additional Infor mation Prescribed Activity and Exercise Education Related to Dietary Surveillance and Counseling Prescribed Diet Educ ation/Lifestyle Education Regarding Diet Related to Dietary Surveillance and Counseling Perform monthly self breast examinations. Related to Encntr for general adult medical exam w/o abnormal findings Increase activity. Related to En cntr for general adult medical exam w/o abnormal findings Dietary counseling Related to Di etary surveillance counseling Decrease caloric intake Related to Dietary surveillance counseling Dietary counseling Related to Di etary surveillance counseling Decrease caloric intake Related to Dietary surveillance counseling Dietary counseling Related to Di etary surveillance counseling Decrease caloric intake Related to Dietary surveillance counseling Dietary counseling Related to Ov erweight Decrease caloric intake Related to Overweight Dietary counseling Related to Di etary surveillance counseling Decrease caloric intake Related to Dietary surveillance counseling Dietary counseling Related to Di etary surveillance counseling Decrease caloric intake Related to Dietary surveillance counseling Perform monthly self breast examinations. Related to Routine Medical Exam Increase activity. Related to Ro utine Medical Exam Assessments Type Assessment Date No Information
[2024-12-06 22:31] LABS: Basophils Percent Auto 0.5 % (0.2-1.2); Eosinophils Absolute Auto 0.1 K/mm3 (0-0.3); Eosinophils Percent Auto 1.6 % (0-4.4); Hematocrit 32.3 % (37.0-47.0); Hemoglobin 9.7 g/dL (12.0-15.0); Immature Granulocyte Absolute 0.02 K/mm3 (0.00-0.031); Immature Granulocyte Percent A 0.2 % (0-0.5); Lymphocytes Absolute Auto 1.74 K/mm3 (0.9-3.2); Mean Corpuscular Hemoglobin 24.8 pg (26-34); Mean Corpuscular Volume 82.6 fl (80-100); Mean Platelet Volume 9.4 fl (7.4-10.4); Monocytes Absolute Auto 0.6 K/mm3 (0.1-0.6); Monocytes Percent Auto 7.4 % (2.6-8.5); Neutrophils Absolute Auto 6.1 K/mm3 (1.3-6.7); Neutrophils Percent Auto 70.3 % (45.5-73.1); Platelet Count Result 354 k/mm3 (150-375); Red Blood Count 3.91 M/mm3 (4.2-5.4); Red Cell Distribution Width 14.6 % (11.5-14.5); White Blood Count 8.7 K/mm3 (4.5-10.0)
[2024-12-06 22:40] LABS: Alanine Aminotransferase 15 U/L (6-35); Albumin Level 3.8 g/dL (3.5-5.1); Alkaline Phosphatase 89 U/L (38-126); Anion Gap 6 mmol/L (4-12); Aspartate Amino Transferase 21 U/L (14-36); Bilirubin,Total < 0.1 mg/dL (0.2-1.3); Blood Urea Nitrogen 12 mg/dL (7-17); Calcium 8.5 mg/dL (8.4-10.2); Carbon Dioxide 25 mmol/L (22-30); Chloride 106 mmol/L (98-107); Estimated CRCL calculation 96 ml/min; Estimated Glomerular Filt Rate > 60; Glucose 147 mg/dL (65-110); Lipase 170 U/L (23-300); Potassium 3.7 mmol/L (3.4-5.0); Sodium 137 mmol/L (137-145)
[2024-12-06 23:59] LABS: BEDSIDEPREGUCG Negative (Negative)
[2024-12-07 00:04] LABS: Add Urine Microscopic? NO; Appearance Urine Clear (Clear); Bilirubin Urine Negative (Negative); Blood Urine Negative (Negative); Color Urine Yellow (Yellow); Glucose Urine UA Negative (Negative); Ketones Urine Trace mg/dL (Negative); Leukocyte Esterase Ur Negative LEU/UL (Negative); Nitrate Urine Negative (Negative); Protein Urine Negative (Negative); Specific Grav Ur 1.033 (1.001-1.035); Urobilinogen Urine 0.2 mg/dL (<2.0); pH Urine 6.5 (5.0-9.0)
--- NOTE | 2024-12-07 01:36 | PC.NURSE ---
Pt screaming at staff and stating that she wants her IV out and is leaving. She then walks out to the waiting room vestibule. Explained to pt that she cannot leave with IV and that I had just received orders from the ERP for pain medication. Pt is continuously screaming at this RN, declines coming back in to wait for results or to receive the pain medication. Still wanting her IV out. Once IV is out states she wants her results. Explained to pt that there are no results yet. Pt wanting to wait in the waiting room for her results. Dr Corrales notified.
--- NOTE | 2024-12-07 02:24 | PC.NURSE ---
Pt refusing pain medications at this time.
--- NOTE | 2024-12-07 03:11 | ED_ITS ---
HPI - Abdominal Pain General Chief Complaint: Abdominal Pain Stated Complaint: abd pain Time Seen by Provider: 12/06/24 22:00 Source: patient Mode of arrival: ambulatory Limitations: no limitations History of Present Illness HPI narrative: 33-year-old status post cholecystectomy here with the complaints of her epigastric pain with started about a week ago. She thinks she may be having a kidney stone. She complains of mild nausea. No history of vomiting. Denies any fever or chills. No altered bowel habits. MD elicited complaint: abdominal pain Pertinent past history: none Onset (ago): week(s) (1) Pain Consistency: constant Location: epigastric Severity: moderate Quality: aching Radiation: epigastric Migration to: no migration Exacerbating factors: nothing Relieving factors: nothing Associated symptoms: denies other symptoms Related Data Home Medications ?Medication ?Instructions ?Recorded ?Confirmed ?Last Taken ?Type ferrous sulfate 325 mg (65 mg 325 mg PO DAILY 05/12/22 05/12/22 05/11/22 History iron) tablet (Iron (ferrous sulfate)) Allergies Allergy/AdvReac Type Severity Reaction Status Date / Time shellfish derived Allergy Severe Swelling Verified 12/06/24 20:56 of Lip/Tongue/Throat, RESP DIFFICULTY pineapple Allergy Unknown Rash Verified 12/06/24 20:56 Pork/Porcine Containing AdvReac Unknown Unknown Verified 12/06/24 20:56 Products Review of Systems 2 Review of Systems: All systems reviewed & are unremarkable except as noted in HPI and below Constitutional: Constitutional: Reports no additional constitutional complaints Eyes: Eyes: Reports no additional eye complaints ENT: Reports system reviewed and no additional complaints, except as documented Cardiovascular: Cardiovascular: Reports no additional cardiovascular complaints Respiratory: Respiratory: Reports no additional respiratory complaints Gastrointestinal: Gastrointestinal: Reports as per HPI Musculoskeletal: Musculoskeletal: Reports no additional musculoskeletal complaints Integumentary/Breasts: Skin/Breast: Reports system reviewed and no additional complaints, except as docu PMFSH Past Medical History Medical History Schizophrenia Spontaneous vaginal delivery 05/2022 Paranoia Family History Family History Mother Hypertension Congestive heart failure Grandparent Palpitations Grandparent Family member Social History Social History Smoking status: Never smoker Second hand tobacco smoke exposure: No Alcohol intake: never Substance use: never Substance use type: unknown Spiritual care concerns: Yes Exam 2 Narrative: GENERAL: Well-appearing, well-nourished, and in no acute distress. HEAD: Normocephalic, atraumatic. EYES: PERRLA and EOMI. ENT: Nares clear, no rhinorrhea or epistaxis. Mucous membranes moist. NECK: Supple. CHEST: Clear to auscultation. No respiratory distress. HEART: Regular rate and rhythm. No murmur heard. Normal peripheral pulses. ABDOMEN: Soft, mild epigastric tenderness, nondistended, normal active bowel sounds. EXTREMITIES: Normal range of motion. No edema. SKIN: Warm, dry, no rash. NEURO: No focal deficits. Alert and oriented x3. PSYCH: Normal mood and affect. Course Course Emergency Course: Patient was upset for her waiting for a long time. Did inform her that her CT scan is delayed. she calmed down and was sleeping ,informed her about her lab work and CT findings ,advised her to take OTC pepcid and take Bentyl for pain Vital Signs Vital signs: Vital Signs Temperature 36.6 C 12/06/24 20:59 Pulse Rate 66 12/06/24 20:59 Respiratory Rate 20 12/06/24 20:59 Blood Pressure 141/98 H 12/06/24 20:59 Pulse Oximetry 100 12/06/24 20:59 Oxygen Delivery Room Air 12/06/24 20:59 Temperature 36.6 C 12/06/24 20:59 Pulse Rate 66 12/06/24 20:59 Respiratory Rate 20 12/06/24 20:59 Blood Pressure 141/98 H 12/06/24 20:59 Pulse Oximetry 100 12/06/24 20:59 Oxygen Delivery Room Air 12/06/24 20:59 MDM - Abdominal Pain Differential Diagnosis Differential diagnosis: Likely abdominal pain, constipation, gastroenteritis, pancreatitis and small bowel obstruction Medical Records Attestation: I reviewed the patient's medical records. Lab Data Attestation: I reviewed the patient's lab results. 12/06/24 22:22 12/06/24 22:22 Labs: Lab Results 12/06/24 12/06/24 12/06/24 Range/Units 22:22 23:54 23:57 WBC 8.7 (4.5-10.0) K/mm3 RBC 3.91 L (4.2-5.4) M/mm3 Hgb 9.7 L (12.0-15.0) g/dL Hct 32.3 L (37.0-47.0) % MCV 82.6 (80-100) fl MCH 24.8 L (26-34) pg MCHC 30.0 L (32-36) g/dl RDW 14.6 H (11.5-14.5) % Plt Count 354 (150-375) k/mm3 MPV 9.4 (7.4-10.4) fl Immature Gran % (Auto) 0.2 (0-0.5) % Neut % (Auto) 70.3 (45.5-73.1) % Lymph % (Auto) 20.0 (18.3-44.2) % [place] % (Auto) 7.4 (2.6-8.5) % Eos % (Auto) 1.6 (0-4.4) % Baso % (Auto) 0.5 (0.2-1.2) % Lymph # (Auto) 1.74 (0.9-3.2) K/mm3 [place] # (Auto) 0.6 (0.1-0.6) K/mm3 Eos # (Auto) 0.1 (0-0.3) K/mm3 Baso # (Auto) 0.0 (0.0-0.1) K/mm3 Abs Immat Gran (auto) 0.02 (0.00-0.031) K/mm3 Absolute Neuts (auto) 6.1 (1.3-6.7) K/mm3 Absolute Nucleated RBC 0.000 (0.0-0.012) K/mm3 Nucleated RBC % 0.0 (0.0-0.2) % Sodium 137 (137-145) mmol/L Potassium 3.7 (3.4-5.0) mmol/L Chloride 106 (98-107) mmol/L Carbon Dioxide 25 (22-30) mmol/L Anion Gap 6 (4-12) mmol/L BUN 12 (7-17) mg/dL Creatinine 0.76 (0.7-1.0) mg/dL Estim Creat Clear Calc 96 ml/min Estimated GFR > 60 (59 - ) Glucose 147 H (65-110) mg/dL Calcium 8.5 (8.4-10.2) mg/dL Total Bilirubin < 0.1 L (0.2-1.3) mg/dL AST 21 (14-36) U/L ALT 15 (6-35) U/L Alkaline Phosphatase 89 (38-126) U/L Total Protein 7.0 (6.3-8.2) g/dL Albumin 3.8 (3.5-5.1) g/dL Lipase 170 (23-300) U/L Urine Color Yellow (Yellow) Urine Appearance Clear (Clear) Urine pH 6.5 (5.0-9.0) Ur Specific [place] 1.033 (1.001-1.035) Urine Protein Negative (Negative) mg/dL Urine Glucose (UA) Negative (Negative) mg/dL Urine Ketones Trace H (Negative) mg/dL Ur Blood (Man) Negative (Negative) Urine Nitrate Negative (Negative) Urine Bilirubin Negative (Negative) Urine Urobilinogen 0.2 (<2.0) mg/dL Leukocyte Esterase Rfl Negative (Negative) TIMOTHY/UL POC Urine HCG, Qual Negative (Negative) Imaging Data Radiologist's impression: CT of the abdomen pelvis with contrast shows appendix is normal, bowel loops are nondilated. No pneumoperitoneum. Previous cholecystectomy. No biliary dilatation or coli local cholelithiasis seen. The liver pancreas spleen and adrenal glands and kidneys are within normal limits no hydronephrosis or ureterolithiasis. Incidental note is made for nonobstructive 2 mm caliceal calculus in the upper pole of the left kidney Discharge Plan Discharge Clinical Impression: Epigastric abdominal pain Patient Disposition: Home Condition: Stable Instructions: Abdominal Pain (ED) Patient Language: [place] Prescriptions: New dicyclomine 20 mg tablet 20 mg PO QID PRN (Reason: abdominal pain) Qty: 20 0RF No Action lorazepam [Ativan] 0.5 mg tablet 0.5 mg PO DAILY PRN (Reason: anxiety) Qty: 7 0RF ondansetron 4 mg tablet,disintegrating 4 mg PO Q8H Qty: 14 0RF tamsulosin [Flomax] 0.4 mg capsule 0.4 mg PO HS Qty: 14 0RF ibuprofen 800 mg tablet 800 mg PO TID PRN (Reason: pain) Qty: 20 0RF docusate sodium 100 mg capsule 100 mg PO BID Qty: 30 0RF polyethylene glycol 3350 17 gram/dose powder 17 g PO DAILY Qty: 119 0RF ferrous sulfate [Iron (ferrous sulfate)] 325 mg (65 mg iron) Tablet 325 mg PO DAILY Follow-up/Referrals: Areli,ROLDAN Marsh [Primary Care Provider] - Time of Disposition: 03:12
[2024-12-07 03:24] VITALS: BP 132/68; PULSE 88; RESP 16; TEMP 36.6; O2SAT 100
== END 2024-12-07 03:25 | disposition home or self-care (01) ==
PROVIDERS: Student in an Organized Health Care Education/Training Program; Emergency Provider Family Medicine; PCP Nurse Practitioner Pediatrics
DX: R10.13 Epigastric pain (principal); Z90.49 Acquired absence of other specified parts of digestive tract; Z79.899 Other long term (current) drug therapy; N20.0 Calculus of kidney
CPT/HCPCS: 36415; 74177; 80053; 81003; 81025; 83690; 85025; 99284; Q9967